=== PATIENT | male | born 1970 | race Hispanic/Latino ===

== ENCOUNTER 2022-03-16 00:49 | Inpatient (IN) | payer SELFPAY ==
[2022-03-16] MEDS ORDERED: SODIUM CHLORIDE 0.9% 1000 ML IV SOLN IV ONE (03:20)
[2022-03-16] MEDS ORDERED: IPRATROPIUM 0.02% NEBU 2.5 ML IH ONE (03:40)
[2022-03-16] MEDS ORDERED: ALBUTEROL 2.5 MG/3 ML NEBU IH ONE (03:40)
[2022-03-16 04:08] LABS: Basophils % (Auto) 0.3 % (0.0-1.8); Hematocrit 42.4 % (35.5-45.6); Lymphocytes # (Auto) 1.4 K/mm3 (1.2-5.4); Lymphocytes % (Auto) 8.4 % (13.4-35.0); Mean Corpuscular HGB Conc 33 % (32-34); Mean Corpuscular Volume 92 fl (84-94); Monocytes % (Auto) 5.9 % (0.0-7.3); Platelet Count 273 K/mm3 (140-440); Red Blood Count 4.63 M/mm3 (3.65-5.03); Red Cell Distribution Width 13.6 % (13.2-15.2)
--- NOTE | 2022-03-16 04:09 | XRay Report ---
CHEST 1 VIEW INDICATION / CLINICAL INFORMATION: Shortness of breath, hypoxia. COMPARISON: None available. FINDINGS: Heart size appears within normal limits. Confluent perihilar airspace opacities are present bilateral ly with additional linear interstitial markings within the mid chest. Bones and soft tissues demonstr ate no acute findings. IMPRESSION: 1. Acute alveolar pulmonary edema is suggested. Signer Name: Santi Coleman II, MD Signed: 03/16/2022 4:04 AM Workstation Name: [id number]
--- NOTE | 2022-03-16 04:09 | Emergency Department Report ---
HPI - General Chief Complaint: Dyspnea/Respdistress Time Seen by Provider: 03/16/22 03:19 - HPI HPI: Room 25 The patient is a 51-year-old male present with chief complaint of shortness of breath. Patient states for the past 9 days he has had increased work of breathing with shortness of breath. Patient also admits to constant substernal chest aching. Patient missed occasional cough that is nonproductive. Patient denies history of fever or pleurisy. Patient states he has not been vaccinated against COVID. Patient denies lower extremity edema. Patient states he never had a stress test or cardiac catheterization ED Past Medical Hx - Past Medical History Previous Medical History?: No - Surgical History Past Surgical History?: No - Family History Family history: no significant - Social History Smoking Status: Current Every Day Smoker (1 pack/day) Substance Use Type: None (Denies illicit drug use) ED Review of Systems ROS: Stated complaint: SOB Other details as noted in HPI Physical Exam - Physical Exam Vital Signs: Vital Signs 03/16/22 03/16/22 03/16/22 01:58 03:13 03:53 Temperature 97.8 F 97.5 F L Pulse Rate 117 H 114 H Pulse Rate [ 113 H Bilateral Throughout] Respiratory 22 20 Rate Respiratory 25 H Rate [Bilateral Throughout] Blood Pressure 76/46 108/79 [Left] O2 Sat by Pulse 91 92 Oximetry ED Course Vital Signs 03/16/22 03/16/22 03/16/22 01:58 03:13 03:53 Temperature 97.8 F 97.5 F L Pulse Rate 117 H 114 H Pulse Rate [ 113 H Bilateral Throughout] Respiratory 22 20 Rate Respiratory 25 H Rate [Bilateral Throughout] Blood Pressure 76/46 108/79 [Left] O2 Sat by Pulse 91 92 Oximetry - Consultations Consultation #1: 03/16/22 05:17 Cardiology paged ED Medical Decision Making - Lab Data Result diagrams: 03/16/22 03:41 03/16/22 03:41 - Radiology Data Radiology results: report reviewed (Chest x-ray), image reviewed (Chest x-ray) interpreted by me: Chest [id number] edema, no pneumothorax [facility] [address] [place] [address] XRay Report Signed Patient: CHARLY YAN MR#: [id number] : 1970 Acct:[id number] Age/Sex: 51 / M ADM Date: 03/16/22 Loc: ED Attending Dr: Ordering Physician: HAVEN PATHAK MD Date of Service: 03/16/22 Procedure(s): XR chest 1V ap Accession Number(s): [id number] cc: HAVEN PATHAK MD Fluoro Time In Minutes: CHEST 1 VIEW INDICATION / CLINICAL INFORMATION: Shortness of breath, hypoxia. COMPARISON: None available. FINDINGS: Heart size appears within normal limits. Confluent perihilar airspace opacities are present bilaterally with additional linear interstitial markings within the mid chest. Bones and soft tissues demonstrate no acute findings. IMPRESSION: 1. Acute alveolar pulmonary edema is suggested. Signer Name: Sachin Coello II, MD Signed: 03/16/2022 4:04 AM Workstation Name: [id number] Transcribed By: SUZANNE Dictated By: SACHIN COELLO II, MD Electronically Authenticated By: SACHIN COELLO II, MD Signed Date/Time: 03/16/22403 DD/ 2 TD/TT: Critical care attestation.: If time is entered above; I have spent that time in minutes in the direct care of this critically ill patient, excluding procedure time. ED Disposition Clinical Impression: NSTEMI (non-ST elevated myocardial infarction), New onset of congestive heart failure, Pulmonary edema, Hypoxia Disposition: ADMITTED INPATIENT Is pt being admited?: Yes Does the pt Need Aspirin: Yes Condition: Serious Instructions: Pulmonary Edema (ED) Time of Disposition: 05:20 (Care transferred to hospitalist (Dr Jacobs))
[2022-03-16] MEDS ORDERED: AZITHROMYCIN/NS 500 MG/250 ML 500 MG/250 ML BAG IV ONE (04:11)
[2022-03-16] MEDS ORDERED: cefTRIAXone/NS 1 GM/50 ML 1 GM/50 ML BAG IV ONE (04:11)
[2022-03-16 04:33] LABS: Alanine Aminotransferase 32 units/L (7-56); BUN/Creatinine Ratio 25; Blood Urea Nitrogen 25 mg/dL (9-20); Calcium 8.7 mg/dL (8.4-10.2); Hemolysis Index 4
[2022-03-16] MEDS ORDERED: ASPIRIN 325 MG TAB PO ONE (05:14)
[2022-03-16] MEDS ORDERED: HEPARIN 10,000 UNITS/10 ML VIAL IV ONE (05:14)
[2022-03-16] MEDS ORDERED: HEPARIN 10,000 UNITS/10 ML VIAL IV PRN (05:14)
[2022-03-16] MEDS ORDERED: FUROSEMIDE 40 MG/4 ML INJ IV ONE (05:16)
[2022-03-16] MEDS ORDERED: NITROGLYCERIN 2% OINT 1 GM TP ONE (05:16)
[2022-03-16 05:59] LABS: INR 1.06 (0.87-1.13); Partial Thromboplastin Time 31.2 Sec. (24.2-36.6)
[2022-03-16] MEDS ORDERED: ONDANSETRON 4 MG/2 ML INJ IV PRN (06:14)
[2022-03-16] MEDS ORDERED: MAGNESIUM HYDROXIDE (MOM) ORAL LIQD UDC PO PRN (06:14)
[2022-03-16] MEDS ORDERED: MORPHINE 2 MG/1 ML INJ IV PRN (06:14)
[2022-03-16] MEDS ORDERED: ACETAMINOPHEN 325 MG TAB PO PRN ×2 (06:14)
[2022-03-16] MEDS ORDERED: traMADol 50 MG TAB PO PRN (06:14)
[2022-03-16] MEDS ORDERED: MORPHINE 4 MG/1 ML INJ IV PRN ×2 (06:14)
[2022-03-16] MEDS: HEPARIN/ 0.45% NACL DRIP 25,000 UNIT/500 ML BAG IV SCH (06:19)
--- NOTE | 2022-03-16 06:24 | History and Physical Report ---
History of Present Illness Date of examination: 03/16/22 Date of admission: 03/16/2022 Chief complaint: Chest pain Shortness of breath History of present illness: 51-year-old male with no significant past medical history presenting to the emergency room today complaining of likely history of chest pain. Patient also has been having increased shortness of breath over the past 1-1/2 weeks. He denies any fever or chills. Chest pain is constant and was substernal. He has had occasional cough which is nonproductive. He has also had some nausea and vomiting. He denies any headache but has had some dizziness. Denies any diaphoresis. Patient denies any sick contacts and no recent travel. Denies any contact with anyone with COVID-19. He has not been vaccinated against COVID-19. Upon arrival in the emergency room patient was quite tachypneic and tachycardic. O2 saturation was about 91%. He was placed on BiPAP with significant improvement. Work-up in the emergency room today chest x-ray shows pulmonary edema. Labs shows elevated BNP of 8846, troponin of 1.46.Leukocytosis of 16.3. Patient was subsequently placed on heparin drip. Past History Past Medical History: No medical history Past Surgical History: No surgical history Social history: smoking (Smokes a pack of cigarette daily) Family history: no significant family history Medications and Allergies Allergies Allergy/AdvReac Type Severity Reaction Status Date / Time No Known Allergies Allergy Verified 03/16/22 02:00 Active Meds: Active Medications Heparin Sodium (Porcine) (Heparin 10,000 Units/10 Ml Vial) 2,900 unit 40 unit/kg (2900 unit) IV Q6H PRN PRN Reason: Anti-Xa Assay<0.1 units/ml Heparin Sodium/Sodium Chloride (Heparin/ 0.45% Nacl-25,000 Unit/500 Ml) 25,000 unit in 500 mls @ 20 mls/hr IV TITRATE EUGENIO; Protocol Review of Systems Constitutional: no fever, no chills Ears, nose, mouth and throat: no nasal congestion, no sore throat Cardiovascular: chest pain, no palpitations Respiratory: shortness of breath, no cough Gastrointestinal: nausea, vomiting, no abdominal pain, no diarrhea, no constipation Genitourinary Male: no dysuria, no hematuria, no flank pain, no nocturia Musculoskeletal: no neck pain, no low back pain Integumentary: no rash, no pruritis Neurological: no headaches, no confusion Psychiatric: no anxiety, no depression Endocrine: no polyphagia, no polydipsia, no polyuria, no nocturia Exam - Constitutional Vitals: Temp Pulse Resp BP Pulse Ox 97.5 F L 113 H 52 H 108/79 97 03/16/22 03:13 03/16/22 04:44 03/16/22 04:44 03/16/22 03:13 03/16/22 04:44 General appearance: Present: mild distress (On BiPAP), well-nourished - EENT Eyes: Present: PERRL, EOM intact. Absent: scleral icterus ENT: hearing intact, clear oral mucosa, dentition normal - Neck Neck: Present: supple, normal ROM - Respiratory Respiratory effort: normal Respiratory: bilateral: rales (Few basilar rales) - Cardiovascular Rhythm: regular Heart Sounds: Present: S1 & S2. Absent: gallop, systolic murmur, diastolic murmur, rub, click - Extremities Extremities: no ischemia, pulses intact, pulses symmetrical, No edema, normal temperature, normal color, Full ROM Peripheral Pulses: within normal limits - Abdominal General gastrointestinal: Present: soft, non-tender, non-distended, normal bowel sounds. Absent: mass - Integumentary Integumentary: Present: clear, warm, dry, normal turgor. Absent: rash - Musculoskeletal Musculoskeletal: strength equal bilaterally - Psychiatric Psychiatric: appropriate mood/affect, intact judgment & insight, memory intact, cooperative - Neurologic Neurologic: CNII-XII intact, no focal deficits, moves all extremities HEART Score - HEART Score Troponin: Troponin T 1.460 ng/mL (0.00-0.029) H* 03/16/22 03:41 Results - Labs CBC & Chem 7: 03/16/22 03:41 03/16/22 03:41 Labs: Abnormal lab results 03/16/22 03/16/22 03/16/22 Range/Units 03:41 03:41 03:41 WBC 16.3 H (4.5-11.0) K/mm3 Lymph % (Auto) 8.4 L (13.4-35.0) % [place] # (Auto) 1.0 H (0.0-0.8) K/mm3 Seg Neutrophils % 85.4 H (40.0-70.0) % Seg Neutrophils # 13.9 H (1.8-7.7) K/mm3 PT (12.2-14.9) Sec. Carbon Dioxide 19 L (22-30) mmol/L BUN 25 H (9-20) mg/dL Glucose 137 H (75-100) mg/dL Lactic Acid (0.7-2.0) mmol/L CK-MB (CK-2) (0.0-4.0) ng/mL CK-MB (CK-2) Rel Index (0-4) Troponin T 1.460 H* (0.00-0.029) ng/mL NT-Pro-B Natriuret Pep (0-900) pg/mL LDL Cholesterol Direct 134 H (50-130) mg/dL HDL Cholesterol 25 L (40-59) mg/dL 03/16/22 03/16/22 03/16/22 Range/Units 03:41 05:26 Unknown WBC (4.5-11.0) K/mm3 Lymph % (Auto) (13.4-35.0) % [place] # (Auto) (0.0-0.8) K/mm3 Seg Neutrophils % (40.0-70.0) % Seg Neutrophils # (1.8-7.7) K/mm3 PT 15.0 H (12.2-14.9) Sec. Carbon Dioxide (22-30) mmol/L BUN (9-20) mg/dL Glucose (75-100) mg/dL Lactic Acid 2.30 H* (0.7-2.0) mmol/L CK-MB (CK-2) 9.0 H (0.0-4.0) ng/mL CK-MB (CK-2) Rel Index 5.6 H (0-4) Troponin T (0.00-0.029) ng/mL NT-Pro-B Natriuret Pep 8846 H (0-900) pg/mL LDL Cholesterol Direct (50-130) mg/dL HDL Cholesterol (40-59) mg/dL Assessment and Plan - Patient Problems (1) NSTEMI (non-ST elevated myocardial infarction) Current Visit: Yes Status: Acute Plan to address problem: Patient admitted and placed in the intensive care unit on BiPAP. We will check serial cardiac enzymes. Patient placed on daily aspirin, sublingual nitroglycerin and IV morphine as needed for chest pain. [employer] Machine Operator on-call has been consulted by the ER physician. (2) Tobacco abuse Current Visit: Yes Status: Acute Plan to address problem: Counseled on quitting tobacco use. (3) Pulmonary edema Current Visit: Yes Status: Acute Plan to address problem: Possibly a new onset CHF. Patient placed on diuretics. We will monitor input and output and also monitor daily weight. Scheduled for echocardiogram. (4) Hypoxia Current Visit: Yes Status: Acute Plan to address problem: Possibly secondary to the pulmonary edema. Suspect underlying pneumonia versus bronchitis. Will place on empiric IV antibiotics. (5) DVT prophylaxis Current Visit: Yes Status: Acute Plan to address problem: Patient on heparin drip. (6) Full code status Current Visit: Yes Status: Acute Plan to address problem: Patient is full code.
[2022-03-16 06:44] LABS: Basophils % (Auto) 0.2 % (0.0-1.8); Hematocrit 42.2 % (35.5-45.6); Hemoglobin 13.7 gm/dl (11.8-15.2); Lymphocytes % (Auto) 6.1 % (13.4-35.0); Mean Corpuscular HGB Conc 33 % (32-34); Mean Corpuscular Volume 92 fl (84-94); Monocytes # (Auto) 0.9 K/mm3 (0.0-0.8); Monocytes % (Auto) 5.4 % (0.0-7.3); Red Blood Count 4.59 M/mm3 (3.65-5.03); Red Cell Distribution Width 13.6 % (13.2-15.2)
[2022-03-16 07:05] LABS: Platelet Count 234 K/mm3 (140-440)
[2022-03-16 07:08] LABS: Blood Urea Nitrogen TNR mg/dL (9-20)
[2022-03-16 07:09] LABS: BUN/Creatinine Ratio TNR; Calcium TNR mg/dL (8.4-10.2); Hemolysis Index TNR
[2022-03-16] MEDS ORDERED: cefTRIAXone/NS 1 GM/50 ML 1 GM/50 ML BAG IV SCH (08:00)
--- NOTE | 2022-03-16 10:10 | Event Note ---
Full consultation dictated. Thank you.
[2022-03-16 10:27] LABS: BUN/Creatinine Ratio 27; Blood Urea Nitrogen 24 mg/dL (9-20); Calcium 8.2 mg/dL (8.4-10.2); Hemolysis Index 52
[2022-03-16 14:08] LABS: Bilirubin,Urine NEG (Negative); Blood,Urine LG (Negative); Color,Urine Yellow (Yellow); Hyaline Casts,Urine 6 /LPF; Mucus,Urine 1+ /HPF; Protein,Urine <15 mg/dL mg/dL (Negative); Urobilinogen,Urine < 2.0 mg/dL (<2.0)
[2022-03-16] MEDS: FAMOTIDINE 20 MG/2 ML INJ IV SCH (14:55)
[2022-03-16] MEDS: FUROSEMIDE 40 MG/4 ML INJ IV SCH (19:04)
--- NOTE | 2022-03-17 | Consultation ---
DATE OF CONSULTATION: 03/16/2022 HISTORY OF PRESENT ILLNESS: The patient is a pleasant 51-year-old gentleman with whom I am consulted on for evaluation of shortness of breath. The patient is a 51-year-old gentleman, who has been having shortness of breath for 2 weeks. 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 Denies any chest pain the whole time. States that he was more shortness of breath, significant orthopnea, some nausea and vomiting, some nonproductive cough. No recent sick contacts. He is seen in room 25 in the Emergency Room this morning. He states he is feeling a lot better. He is chest pain free, breathing a lot easier and is "relieved to be here." He does not see doctors regularly. Denies any drug or food allergies. MEDICATIONS: No outpatient medications and inpatient medications were reviewed. REVIEW OF SYSTEMS: As per HPI. PHYSICAL EXAMINATION: VITAL SIGNS: Tele reveals heart rate of 95-105, sinus rhythm. His O2 sat is 97% on 2 liters, blood pressure is 110/80. He is afebrile at this time. GENERAL: This is a middle-aged gentleman, in no apparent distress, oriented x 3, conversive. HEENT: Sclerae are anicteric. NECK: Supple, no masses, no JVD. CHEST: Decreased breath sounds, bibasilar rales. CARDIAC: Tachycardic. S1, S2. S3 is present. ABDOMEN: Soft, nontender. EXTREMITIES: 1+ edema. SKIN: Warm, dry and intact. No skin rash. NEUROLOGIC: Neuro is unremarkable. No focal deficits. LABORATORY DATA: EKG reveals sinus tachycardia, left atrial enlargement, nonspecific T-wave abnormalities, anterior ST depression. Chest x-ray shows increased interstitial markings. WBC 16.3, hemoglobin 14, hematocrit 42, platelets 273. Potassium is 4.6, creatinine is 1, BUN is 25. Sugar is 137, bicarbonate is 19. First, lactic acid is 2.3. Troponin is 1.6. ASSESSMENT: In summary, the patient is a 51-year-old gentleman who presents with 2 weeks of shortness of breath currently feeling much better. Likely acute systolic heart failure due to very late presentation, acute ND. Troponin is elevated. The patient is orthopneic likely has an ischemic cardiomyopathy, but has had significant orthopnea. At this point, he is chest pain free and clinically improved, blood pressures are also on the lower side and has likely physiologic sinus tachycardia. Continue IV heparin, aspirin, initiate statin therapy. Avoid any antihypertensives including beta wilver or ARB/CLARITA at this time due to very soft blood pressures. Agree with IV diuresis. We will need to watch his labs closely. Elevated lactate level also portends as a poor sign. Smoking cessation discussed. Long discussion with the patient regarding importance of lifestyle changes and so forth. We will admit to ICU diurese once this orthopnea improved. We checked an echocardiogram, consider left heart catheterization. He is chest pain free at this time. Thank you for this consultation. We will be happy following with you. TID: [id number] RECEIPT: [id number] DAVONTE/ADRIÁN
[2022-03-17 05:18] LABS: Basophils % (Auto) 0.4 % (0.0-1.8); Eosinophils % (Auto) 0.1 % (0.0-4.3); Hematocrit 39.7 % (35.5-45.6); Hemoglobin 13.1 gm/dl (11.8-15.2); Lymphocytes % (Auto) 16.8 % (13.4-35.0); Mean Corpuscular HGB Conc 33 % (32-34); Mean Corpuscular Volume 91 fl (84-94); Monocytes % (Auto) 7.9 % (0.0-7.3); Platelet Count 271 K/mm3 (140-440); Red Blood Count 4.35 M/mm3 (3.65-5.03); Red Cell Distribution Width 13.7 % (13.2-15.2)
[2022-03-17] MEDS: FUROSEMIDE 40 MG/4 ML INJ IV SCH ×2 (05:20→17:05)
[2022-03-17 05:35] LABS: BUN/Creatinine Ratio 29; Blood Urea Nitrogen 35 mg/dL (9-20); Calcium 8.8 mg/dL (8.4-10.2); Hemolysis Index 2
[2022-03-17] MEDS ORDERED: cefTRIAXone/NS 2 GM/100 ML 2 GM/100 ML BAG IV SCH (06:00)
[2022-03-17] MEDS ORDERED: AZITHROMYCIN/NS 500 MG/250 ML 500 MG/250 ML BAG IV SCH (06:00)
[2022-03-17] MEDS ORDERED: REGADENOSON 0.4 MG/5 ML INJ IV ONE (09:00)
[2022-03-17] MEDS ORDERED: SODIUM POLYSTYRENE 15 GM/60 ML ORAL LIQD PO SCH (09:00)
[2022-03-17] MEDS: ASPIRIN EC 325 MG TAB PO SCH (10:13)
[2022-03-17] MEDS: FAMOTIDINE 20 MG/2 ML INJ IV SCH (10:13)
--- NOTE | 2022-03-17 10:26 | Progress Note ---
Assessment and Plan Assessment and plan: This is a 51-year-old male with no significant past medical history initially admitted to [facility] for NSTEMI and new onset CHF. Patient was transferred to ICU due to increased WOB and tachypnea requiring continuous Bipap Hospital Course to Date: 03/17: Patient remains on continuous Bipap, respiratory status improved, RR in the 20s. Remains on IV lasix BID, 2D Echo pending. Cardiology and CCM following. Plan for possible stress test today. Patient remains on heparin gtt per prot ocol. Wean O2 supplementation as tolerated. Assessment and Plan #NSTEMI (non-ST elevated myocardial infarction) #New Onset congestive heart failure(CHF) - Presented with CP and SOB - Troponin is elevated X4 - Initial EKG with ST, nonspecific ST elevation - BNP 8846 - On IV Lasix BID - Cardiology on consult, appreciated recommendations - 2D Echo pending - Plan for possible stress test today - Continue ASA, PRN Nitro and IN morphine for chest pain - Continue blood pressure monitor per protocol - Maintain MAP above 65 - Continue Heparin gtt per protocol - Strick I&Os and Daily #Acute Hypoxic Respiratory Failure 12/18 #Pulmonary Edema - Most likely due to new onset CHF. - Transfer to ICU for increased WOB and tachypenea requiring continuous Bipap - Chest x-ray shows pulmonary edema - Remains on Bipap this am, SPO2 at 100%, respiratory status improved - Continue IV Lasix BID, Echo pending - CCM consulted, appreciate recommendations - Continue O2 supplementation and wean as tolerated - Continue SPO2 monitoring for SPO2 goal above 92% - Strick I&Os and Daily #Hyperkalemia - Renal function normal at this time, good urine output - Hyperkalemic despite IV lasix - X1 dose of Kayexalate - Continue to monitor renal function - Strict intake and output - Avoid nephrotoxic medications; Renally dose medications - Monitor and replace electrolytes as needed #Tobacco Dependence - Per patient, smoke 1pack of cigarettes for over 30 years - Smoking cessation education provided, patient verbalized understand and agreed with plan - Denied any urges at this time, nicotine patch as needed #GI/DVT Prophylaxis - PPI- Pepcid - Heparin gtt per protcol - SCDs to bilateral lower extremities while in bed The high probability of a clinically significant, sudden or life threatening deterioration of the [multiple] system(s) required my full and direct attention, intervention and personal management. The aggregate critical care time was [60] minutes. This time is in addition to time spent performing reported procedures but includes the following: [x] Data Review and interpretation [x] Patient assessment and monitoring of vital signs [x] Documentation [x] Medication orders and management Disposition Plan: ICU Total Time Spent with Patient (Minutes): 60 History Interval history: Patient seen and examined at the bedside. Fully AAO, on Bipap, denied any pain nor any discomfort at this time. VSS. Patient reported feeling anxious about this am procedure and hospital bills. Patient has been NPO since after midnight for possible stress test today. Patient remains on Heparin gtt per protocol Hospitalist Physical - Constitutional Vitals: Temp Pulse Resp BP Pulse Ox 97 F L 95 H 30 H 108/82 95 03/17/22 08:11 03/17/22 09:50 03/17/22 09:50 03/17/22 09:50 03/17/22 09:58 General appearance: Present: no acute distress, well-nourished - EENT Eyes: Present: PERRL, EOM intact ENT: hearing intact - Neck Neck: Present: normal ROM - Respiratory Respiratory effort: normal Respiratory: bilateral: diminished - Cardiovascular Rhythm: regular Heart Sounds: Present: S1 & S2 - Extremities Extremities: no ischemia, pulses intact, pulses symmetrical Peripheral Pulses: within normal limits - Abdominal General gastrointestinal: soft, non-distended, normal bowel sounds - Integumentary Integumentary: Present: clear, warm, dry - Psychiatric Psychiatric: cooperative, other (Anxious) - Neurologic Neurologic: CNII-XII intact, moves all extremities - Allied Health Allied health notes reviewed: nursing HEART Score - HEART Score Troponin: Troponin T 1.410 ng/mL (0.00-0.029) H* 03/16/22 17:41 Troponin T 1.420 ng/mL (0.00-0.029) H* 03/16/22 17:41 Results - Labs CBC & Chem 7: 03/17/22 04:22 03/17/22 04:22 Labs: Laboratory Last Values WBC 12.2 K/mm3 (4.5-11.0) H 03/17/22 04:22 RBC 4.35 M/mm3 (3.65-5.03) 03/17/22 04:22 Hgb 13.1 gm/dl (11.8-15.2) 03/17/22 04:22 Hct 39.7 % (35.5-45.6) 03/17/22 04:22 MCV 91 fl (84-94) 03/17/22 04:22 MCH 30 pg (28-32) 03/17/22 04:22 MCHC 33 % (32-34) 03/17/22 04:22 RDW 13.7 % (13.2-15.2) 03/17/22 04:22 Plt Count 271 K/mm3 (140-440) 03/17/22 04:22 Lymph % (Auto) 16.8 % (13.4-35.0) 03/17/22 04:22 [place] % (Auto) 7.9 % (0.0-7.3) H 03/17/22 04:22 Eos % (Auto) 0.1 % (0.0-4.3) 03/17/22 04:22 Baso % (Auto) 0.4 % (0.0-1.8) 03/17/22 04:22 Lymph # (Auto) 2.0 K/mm3 (1.2-5.4) 03/17/22 04:22 [place] # (Auto) 1.0 K/mm3 (0.0-0.8) H 03/17/22 04:22 Eos # (Auto) 0.0 K/mm3 (0.0-0.4) 03/17/22 04:22 Baso # (Auto) 0.0 K/mm3 (0.0-0.1) 03/17/22 04:22 Seg Neutrophils % 74.8 % (40.0-70.0) H 03/17/22 04:22 Seg Neutrophils # 9.1 K/mm3 (1.8-7.7) H 03/17/22 04:22 PT 15.0 Sec. (12.2-14.9) H 03/16/22 05: INR 1.06 (0.87-1.13) 03/16/22 05:26 APTT 31.2 Sec. (24.2-36.6) 03/16/22 05:26 Heparin Anti-Xa Level 0.15 U.I./ml (0.3-0.7) L 03/17/22 08:37 Sodium 142 mmol/L (137-145) 03/17/22 04:22 Potassium 5.4 mmol/L (3.6-5.0) H 03/17/22 04:22 Chloride 104.8 mmol/L (98-107) 03/17/22 04:22 Carbon Dioxide 23 mmol/L (22-30) 03/17/22 04:22 Anion Gap 20 mmol/L 03/17/22 04:22 BUN 35 mg/dL (9-20) H 03/17/22 04:22 Creatinine 1.2 mg/dL (0.8-1.3) 03/17/22 04:22 Estimated GFR > 60 ml/min 03/17/22 04:22 BUN/Creatinine Ratio 29 % 03/17/22 04:22 Glucose 106 mg/dL (75-100) H 03/17/22 04:22 POC Glucose 109 mg/dL (70-105) H 03/16/22 23:58 Lactic Acid 1.60 mmol/L (0.7-2.0) 03/17/22 04:22 Calcium 8.8 mg/dL (8.4-10.2) 03/17/22 04:22 Total Bilirubin 0.40 mg/dL (0.1-1.2) 03/16/22 03:41 AST 28 units/L (5-40) 03/16/22 03:41 ALT 32 units/L (7-56) 03/16/22 03:41 Alkaline Phosphatase 60 units/L (35-129) 03/16/22 03:41 Total Creatine Kinase 158 units/L (55-170) 03/16/22 Unknown CK-MB (CK-2) 9.0 ng/mL (0.0-4.0) H 03/16/22 Unknown CK-MB (CK-2) Rel Index 5.6 (0-4) H 03/16/22 Unknown Troponin T 1.410 ng/mL (0.00-0.029) H* 03/16/22 17:41 Troponin T 1.420 ng/mL (0.00-0.029) H* 03/16/22 17:41 NT-Pro-B Natriuret Pep 8846 pg/mL (0-900) H 03/16/22 Unknown Total Protein 6.4 g/dL (6.3-8.2) 03/16/22 03:41 Albumin 4.0 g/dL (3.9-5) 03/16/22 03:41 Albumin/Globulin Ratio 1.7 % 03/16/22 03:41 Triglycerides 139 mg/dL (2-149) 03/16/22 03:41 Cholesterol 175 mg/dL (50-199) 03/16/22 03:41 LDL Cholesterol Direct 134 mg/dL (50-130) H 03/16/22 03:41 HDL Cholesterol 25 mg/dL (40-59) L 03/16/22 03:41 Cholesterol/HDL Ratio 7.00 % 03/16/22 03:41 Urine Color Yellow (Yellow) 03/16/22 13:56 Urine Turbidity Clear (Clear) 03/16/22 13:56 Urine pH 5.0 (5.0-7.0) 03/16/22 13:56 Ur Specific [place] 1.018 (1.003-1.030) 03/16/22 13:56 Urine Protein <15 mg/dl mg/dL (Negative) 03/16/22 13:56 Urine Glucose (UA) Neg mg/dL (Negative) 03/16/22 13:56 Urine Ketones Neg mg/dL (Negative) 03/16/22 13:56 Urine Blood Lg (Negative) 03/16/22 13:56 Urine Nitrite Neg (Negative) 03/16/22 13:56 Urine Bilirubin Neg (Negative) 03/16/22 13:56 Urine Urobilinogen < 2.0 mg/dL (<2.0) 03/16/22 13:56 Ur Leukocyte Esterase Neg (Negative) 03/16/22 13:56 Urine WBC (Auto) 1.0 /HPF (0.0-6.0) 03/16/22 13:56 Urine RBC (Auto) 2.0 /HPF (0.0-6.0) 03/16/22 13:56 U Epithel Cells (Auto) < 1.0 /HPF (0-13.0) 03/16/22 13:56 Hyaline Casts 6 /LPF 03/16/22 13:56 Urine Mucus 1+ /HPF 03/16/22 13:56 Coronavirus (PCR) Negative (Negative) 03/16/22 12:26 Microbiology: Microbiology 03/16/22 03:41 Peripheral/Venous Blood Culture - Preliminary NO GROWTH AFTER 24 HOURS 03/16/22 03:41 Peripheral/Venous Blood Culture - Preliminary NO GROWTH AFTER 24 HOURS Martini/IV: Voiding Method Urinal Active Medications - Current Medications Current Medications: Generic Name Dose Route Start Last Admin Trade Name Freq PRN Reason Stop Dose Admin Acetaminophen 650 mg 03/16/22 06:14 Acetaminophen 325 Mg Tab PO Q6H PRN Pain MILD(1-3)/Fever >100.5/CLEARY Aspirin 325 mg 03/17/22 10:00 03/17/22 10:13 Aspirin Ec 325 Mg Tab PO 325 mg QDAY EUGENIO Administration Atorvastatin Calcium 20 mg 03/16/22 22:00 03/16/22 21:26 Atorvastatin 20 Mg Tab PO Not Given QHS EUGENIO Famotidine 20 mg 03/16/22 10:00 03/17/22 10:13 Famotidine 20 Mg/2 Ml Inj IV 20 mg QDAY EUGENIO Administration Furosemide 40 mg 03/16/22 18:00 03/17/22 05:20 Furosemide 40 Mg/4 Ml Inj IV 40 mg BID@0600,1800 EUGENIO Administration Heparin Sodium (Porcine) 2,900 unit 03/16/22 05:14 Heparin 10,000 Units/10 Ml Vial 40 unit/kg (2900 unit) IV Q6H PRN Anti-Xa Assay<0.1 units/ml Heparin Sodium/Sodium Chloride 25,000 unit in 500 mls @ 20 mls/hr 03/16/22 06:00 03/17/22 01:53 Heparin/ 0.45% Nacl-25,000 Unit/500 Ml IV 1,350 units/hr TITRATE EUGENIO 27 mls/hr Titration Protocol 1,000 UNITS/HR Ceftriaxone Sodium 2 gm in 100 mls @ 200 mls/hr 03/17/22 06:00 03/17/22 05:19 Rocephin/Ns 2 Gm/100 Ml IV 200 mls/hr Q24H EUGENIO Administration Protocol Azithromycin 500 mg in 250 mls @ 250 mls/hr 03/17/22 06:00 03/17/22 05:19 Zithromax/Ns IV 250 mls/hr Q24H EUGENIO Administration Protocol Magnesium Hydroxide 30 ml 03/16/22 06:14 Magnesium Hydroxide (Mom) Oral Liqd Udc PO Q4H PRN Constipation Morphine Sulfate 2 mg 03/16/22 06:14 Morphine 2 Mg/1 Ml Inj IV Q4H PRN Pain, Moderate (4-6) Morphine Sulfate 4 mg 03/16/22 06:14 Morphine 4 Mg/1 Ml Inj IV Q4H PRN Pain , Severe (7-10) Morphine Sulfate 2 mg 03/16/22 06:14 Morphine 4 Mg/1 Ml Inj IV Q5MIN PRN Chest Pain unrelieved by NTG Ondansetron HCl 4 mg 03/16/22 06:14 Ondansetron 4 Mg/2 Ml Inj IV Q8H PRN Nausea And Vomiting Sodium Chloride 10 ml 03/16/22 10:00 03/17/22 10:14 Sodium Chloride 0.9% 10 Ml Flush Syringe IV 10 ml BID EUGENIO Administration Sodium Chloride 10 ml 03/16/22 06:14 Sodium Chloride 0.9% 10 Ml Flush Syringe IV PRN PRN LINE FLUSH Sodium Polystyrene Sulfonate 15 gm 03/17/22 09:00 03/17/22 10:24 Sodium Polystyrene 15 Gm/60 Ml Oral Liqd PO 03/17/22 13:00 Not Given ONCE@0900 [facility] Tramadol HCl 50 mg 03/16/22 06:14 Tramadol 50 Mg Tab PO Q6H PRN Pain, Moderate (4-6)
--- NOTE | 2022-03-17 11:19 | Consultation ---
History of Present Illness Consult date: 03/16/22 Requesting physician: JAY MEIER Reason for consult: other (AHRF; NSTEMI; Chest pain) History of present illness: LATE ENTRY NOTE FOR DOS 03/16/2022 PULMONARY/CCM CONSULT NOTE (Full dictation # [id number]) Please see dictated notes for full details Past History Past Medical History: No medical history Past Surgical History: No surgical history Social history: smoking (Smokes a pack of cigarette daily) Family history: no significant family history Medications and Allergies Allergies Allergy/AdvReac Type Severity Reaction Status Date / Time No Known Allergies Allergy Verified 03/16/22 02:00 Active Meds: Active Medications Acetaminophen (Acetaminophen 325 Mg Tab) 650 mg PO Q6H PRN PRN Reason: Pain MILD(1-3)/Fever >100.5/CLEARY Aspirin (Aspirin Ec 325 Mg Tab) 325 mg PO QDAY [facility] Last Admin: 03/17/22 10:13 Dose: 325 mg Atorvastatin Calcium (Atorvastatin 20 Mg Tab) 20 mg PO QHS [facility] Last Admin: 03/16/22 21:26 Dose: Not Given Famotidine (Famotidine 20 Mg/2 Ml Inj) 20 mg IV QDAY [facility] Last Admin: 03/17/22 10:13 Dose: 20 mg Furosemide (Furosemide 40 Mg/4 Ml Inj) 40 mg IV BID@0600,1800 [facility] Last Admin: 03/17/22 05:20 Dose: 40 mg Heparin Sodium (Porcine) (Heparin 10,000 Units/10 Ml Vial) 2,900 unit 40 unit/kg (2900 unit) IV Q6H PRN PRN Reason: Anti-Xa Assay<0.1 units/ml Heparin Sodium/Sodium Chloride (Heparin/ 0.45% Nacl-25,000 Unit/500 Ml) 25,000 unit in 500 mls @ 20 mls/hr IV TITRATE [facility]; Protocol Last Titration: 03/17/22 10:46 Dose: Infused Magnesium Hydroxide (Magnesium Hydroxide (Mom) Oral Liqd Udc) 30 ml PO Q4H PRN PRN Reason: Constipation Morphine Sulfate (Morphine 2 Mg/1 Ml Inj) 2 mg IV Q4H PRN PRN Reason: Pain, Moderate (4-6) Morphine Sulfate (Morphine 4 Mg/1 Ml Inj) 4 mg IV Q4H PRN PRN Reason: Pain , Severe (7-10) Morphine Sulfate (Morphine 4 Mg/1 Ml Inj) 2 mg IV Q5MIN PRN PRN Reason: Chest Pain unrelieved by NTG Ondansetron HCl (Ondansetron 4 Mg/2 Ml Inj) 4 mg IV Q8H PRN PRN Reason: Nausea And Vomiting Sodium Chloride (Sodium Chloride 0.9% 10 Ml Flush Syringe) 10 ml IV BID [facility] Last Admin: 03/17/22 10:14 Dose: 10 ml Sodium Chloride (Sodium Chloride 0.9% 10 Ml Flush Syringe) 10 ml IV PRN PRN PRN Reason: LINE FLUSH Sodium Polystyrene Sulfonate (Sodium Polystyrene 15 Gm/60 Ml Oral Liqd) 15 gm PO ONCE@0900 [facility] Stop: 03/17/22 13:00 Last Admin: 03/17/22 10:24 Dose: Not Given Tramadol HCl (Tramadol 50 Mg Tab) 50 mg PO Q6H PRN PRN Reason: Pain, Moderate (4-6) Physical Examination Vital signs: Vital Signs Temp Pulse Resp BP Pulse Ox 97.8 F 117 H 22 76/46 91 03/16/22 01:58 03/16/22 01:58 03/16/22 01:58 03/16/22 01:58 03/16/22 01:58 Results - Laboratory Findings CBC and BMP: 03/17/22 04:22 03/17/22 04:22 PT/INR, D-dimer PT 15.0 Sec. (12.2-14.9) H 03/16/22 05:26 INR 1.06 (0.87-1.13) 03/16/22 05:26 Abnormal lab findings: Abnormal Labs 03/16/22 03/16/22 03/16/22 03:41 03:41 03:41 WBC 16.3 H Lymph % (Auto) 8.4 L [place] % (Auto) Lymph # (Auto) [place] # (Auto) 1.0 H Seg Neutrophils % 85.4 H Seg Neutrophils # 13.9 H PT Heparin Anti-Xa Level Potassium Carbon Dioxide 19 L BUN 25 H Glucose 137 H POC Glucose Lactic Acid Calcium CK-MB (CK-2) CK-MB (CK-2) Rel Index Troponin T 1.460 H* NT-Pro-B Natriuret Pep LDL Cholesterol Direct 134 H HDL Cholesterol 25 L 03/16/22 03/16/22 03/16/22 03:41 05:26 06:14 WBC 16.6 H Lymph % (Auto) 6.1 L [place] % (Auto) Lymph # (Auto) 1.0 L [place] # (Auto) 0.9 H Seg Neutrophils % 88.3 H Seg Neutrophils # 14.7 H PT 15.0 H Heparin Anti-Xa Level Potassium Carbon Dioxide BUN Glucose POC Glucose Lactic Acid 2.30 H* Calcium CK-MB (CK-2) CK-MB (CK-2) Rel Index Troponin T NT-Pro-B Natriuret Pep LDL Cholesterol Direct HDL Cholesterol 03/16/22 03/16/22 03/16/22 06:19 08:19 08:19 WBC Lymph % (Auto) [place] % (Auto) Lymph # (Auto) [place] # (Auto) Seg Neutrophils % Seg Neutrophils # PT Heparin Anti-Xa Level Potassium Carbon Dioxide 18 L BUN 24 H Glucose 138 H POC Glucose Lactic Acid 2.60 H* 2.30 H* Calcium 8.2 L CK-MB (CK-2) CK-MB (CK-2) Rel Index Troponin T NT-Pro-B Natriuret Pep LDL Cholesterol Direct HDL Cholesterol 03/16/22 03/16/22 03/16/22 17:41 17:41 17:41 WBC Lymph % (Auto) [place] % (Auto) Lymph # (Auto) [place] # (Auto) Seg Neutrophils % Seg Neutrophils # PT Heparin Anti-Xa Level < 0.10 L Potassium Carbon Dioxide BUN Glucose POC Glucose Lactic Acid Calcium CK-MB (CK-2) CK-MB (CK-2) Rel Index Troponin T 1.420 H* 1.410 H* NT-Pro-B Natriuret Pep LDL Cholesterol Direct HDL Cholesterol 03/16/22 03/16/22 03/17/22 23:58 Unknown 00:39 WBC Lymph % (Auto) [place] % (Auto) Lymph # (Auto) [place] # (Auto) Seg Neutrophils % Seg Neutrophils # PT Heparin Anti-Xa Level < 0.10 L Potassium Carbon Dioxide BUN Glucose POC Glucose 109 H Lactic Acid Calcium CK-MB (CK-2) 9.0 H CK-MB (CK-2) Rel Index 5.6 H Troponin T NT-Pro-B Natriuret Pep 8846 H LDL Cholesterol Direct HDL Cholesterol 03/17/22 03/17/22 03/17/22 04:22 04:22 08:37 WBC 12.2 H Lymph % (Auto) [place] % (Auto) 7.9 H Lymph # (Auto) [place] # (Auto) 1.0 H Seg Neutrophils % 74.8 H Seg Neutrophils # 9.1 H PT Heparin Anti-Xa Level 0.15 L Potassium 5.4 H Carbon Dioxide BUN 35 H Glucose 106 H POC Glucose Lactic Acid Calcium CK-MB (CK-2) CK-MB (CK-2) Rel Index Troponin T NT-Pro-B Natriuret Pep LDL Cholesterol Direct HDL Cholesterol
[2022-03-17] MEDS: HEPARIN/ 0.45% NACL DRIP 25,000 UNIT/500 ML BAG IV SCH (12:35)
--- NOTE | 2022-03-17 13:39 | Electrocardiograph Report ---
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
--- NOTE | 2022-03-17 16:14 | Progress Note ---
Assessment and Plan Acute hypoxemic respiratory failure Acute bilateral pulmonary edema Acute exacerbation of congestive heart failure Leukocytosis Tobacco use disorder Lactic acidosis - cardiology evaluation ongoing - CXR in am - change BIPAP to prn - continue to wean supplemental oxygen to keep O2 sats > 90% - continue Bronchodilators (JENNYFER & LABA) with pulm hygiene per RT - continue systemic steroids with slow taper - continue inhaled corticosteroids - continue to avoid nephrotoxins, renally dose all medications - continue mobility protocols to prevent pressure ulcers - PT/OT as tolerated - Wound care per RN/WCT - continue accuchecks with glycemic control per SSI for target blood glucose < 180 mg/dL - Smoking cessation strongly counseled at the bedside - home oxygen evaluation at discharge - GI & VTE prophylaxis - Flu & pneumovax per protocol - Pulmonary out patient follow up for PFTs and optimization of respiratory status - continue other care per attending / other consultants - prn analgesia per pain score ... re-evaluate in am & prn .... transfer to medical floor Subjective Date of service: 03/17/22 Principal diagnosis: AHRF; AE-CHF; Acute pulmonary edema; Leukocytosis; Lactic acidosis Interval history: Patient is seen today for: Acute hypoxemic respiratory failure; AE-CHF; Acute pulmonary edema; Leukocytosis; Lactic acidosis Seen and examined at bedside; 24hour events reviewed; nursing and respiratory care staff consulted; no adverse overnight events reported to me; resting peacefully in bed; doing so much better clinically with diuresis; off BIPAP now and on 3L NC; denies acute chest pains or palpitations Objective Vital Signs - 12hr 03/17/22 03/17/22 03/17/22 05:00 08:00 08:07 Temperature Pulse Rate 93 H 87 Pulse Rate [ 95 H From Monitor] Respiratory 34 H 30 H 30 H Rate Blood Pressure 104/74 101/75 O2 Sat by Pulse 97 98 99 Oximetry 03/17/22 03/17/22 03/17/22 08:11 09:00 09:50 Temperature 97 F L Pulse Rate 95 H Pulse Rate [ 101 H From Monitor] Respiratory 31 H 30 H Rate Blood Pressure 108/82 O2 Sat by Pulse 99 100 Oximetry 03/17/22 03/17/22 03/17/22 09:58 10:00 12:26 Temperature Pulse Rate 96 H 107 H Pulse Rate [ From Monitor] Respiratory Rate Blood Pressure O2 Sat by Pulse 95 Oximetry 05/02/22 05/02/22 05/02/22 12:32 12:44 15:55 Temperature 97.5 F L 98.6 F Pulse Rate Pulse Rate [ 107 H From Monitor] Respiratory 34 H Rate Blood Pressure O2 Sat by Pulse 99 Oximetry Constitutional: no acute distress Eyes: non-icteric ENT: oropharynx moist Neck: supple, no lymphadenopathy, no JVD Effort: mildly labored Ascultation: Bilateral: rales (bases) Percussion: Bilateral: not dull Cardiovascular: regular rate and rhythm Gastrointestinal: normoactive bowel sounds, soft, non-tender, non-distended Integumentary: normal Extremities: no cyanosis, pink and warm, pulses normal, no ischemia or petechiae Neurologic: non-focal exam, pupils equal and round, CN II-XII normal, motor strength normal and Psychiatric: mood appropriate, affect normal CBC and BMP: 03/18/22 04:47 03/18/22 04:47 ABG, PT/INR, D-dimer: PT/INR, D-dimer PT 15.0 Sec. (12.2-14.9) H 03/16/22 05:26 INR 1.06 (0.87-1.13) 03/16/22 05:26 Abnormal lab findings: Abnormal Labs 03/16/22 03/16/22 03/16/22 03:41 03:41 03:41 WBC 16.3 H Lymph % (Auto) 8.4 L [place] % (Auto) Lymph # (Auto) [place] # (Auto) 1.0 H Seg Neutrophils % 85.4 H Seg Neutrophils # 13.9 H PT Heparin Anti-Xa Level Potassium Carbon Dioxide 19 L BUN 25 H Glucose 137 H POC Glucose Lactic Acid Calcium CK-MB (CK-2) CK-MB (CK-2) Rel Index Troponin T 1.460 H* NT-Pro-B Natriuret Pep LDL Cholesterol Direct 134 H HDL Cholesterol 25 L 03/16/22 03/16/22 03/16/22 03:41 05:26 06:14 WBC 16.6 H Lymph % (Auto) 6.1 L [place] % (Auto) Lymph # (Auto) 1.0 L [place] # (Auto) 0.9 H Seg Neutrophils % 88.3 H Seg Neutrophils # 14.7 H PT 15.0 H Heparin Anti-Xa Level Potassium Carbon Dioxide BUN Glucose POC Glucose Lactic Acid 2.30 H* Calcium CK-MB (CK-2) CK-MB (CK-2) Rel Index Troponin T NT-Pro-B Natriuret Pep LDL Cholesterol Direct HDL Cholesterol 03/16/22 03/16/22 03/16/22 06:19 08:19 08:19 WBC Lymph % (Auto) [place] % (Auto) Lymph # (Auto) [place] # (Auto) Seg Neutrophils % Seg Neutrophils # PT Heparin Anti-Xa Level Potassium Carbon Dioxide 18 L BUN 24 H Glucose 138 H POC Glucose Lactic Acid 2.60 H* 2.30 H* Calcium 8.2 L CK-MB (CK-2) CK-MB (CK-2) Rel Index Troponin T NT-Pro-B Natriuret Pep LDL Cholesterol Direct HDL Cholesterol 03/16/22 03/16/22 03/16/22 17:41 17:41 17:41 WBC Lymph % (Auto) [place] % (Auto) Lymph # (Auto) [place] # (Auto) Seg Neutrophils % Seg Neutrophils # PT Heparin Anti-Xa Level < 0.10 L Potassium Carbon Dioxide BUN Glucose POC Glucose Lactic Acid Calcium CK-MB (CK-2) CK-MB (CK-2) Rel Index Troponin T 1.420 H* 1.410 H* NT-Pro-B Natriuret Pep LDL Cholesterol Direct HDL Cholesterol 03/16/22 03/16/22 03/17/22 23:58 Unknown 00:39 WBC Lymph % (Auto) [place] % (Auto) Lymph # (Auto) [place] # (Auto) Seg Neutrophils % Seg Neutrophils # PT Heparin Anti-Xa Level < 0.10 L Potassium Carbon Dioxide BUN Glucose POC Glucose 109 H Lactic Acid Calcium CK-MB (CK-2) 9.0 H CK-MB (CK-2) Rel Index 5.6 H Troponin T NT-Pro-B Natriuret Pep 8846 H LDL Cholesterol Direct HDL Cholesterol 03/17/22 03/17/22 03/17/22 04:22 04:22 08:37 WBC 12.2 H Lymph % (Auto) [place] % (Auto) 7.9 H Lymph # (Auto) [place] # (Auto) 1.0 H Seg Neutrophils % 74.8 H Seg Neutrophils # 9.1 H PT Heparin Anti-Xa Level 0.15 L Potassium 5.4 H Carbon Dioxide BUN 35 H Glucose 106 H POC Glucose Lactic Acid Calcium CK-MB (CK-2) CK-MB (CK-2) Rel Index Troponin T NT-Pro-B Natriuret Pep LDL Cholesterol Direct HDL Cholesterol 03/17/22 15:12 WBC Lymph % (Auto) [place] % (Auto) Lymph # (Auto) [place] # (Auto) Seg Neutrophils % Seg Neutrophils # PT Heparin Anti-Xa Level Potassium Carbon Dioxide BUN Glucose POC Glucose 134 H Lactic Acid Calcium CK-MB (CK-2) CK-MB (CK-2) Rel Index Troponin T NT-Pro-B Natriuret Pep LDL Cholesterol Direct HDL Cholesterol Chest x-ray: pending Allied health notes reviewed: nursing
--- NOTE | 2022-03-17 16:34 | Progress Note ---
Assessment and Plan Patient 50-year-old male who presents to the ED for complaint of shortness of breath for 2 weeks NSTEMI HFrEF Suspect ischemic cardiomyopathy Echo 03/16/2022-EF 10 to 15%. LV is moderately dilated. Severe global hypokinesis with LV. Right ventricle is borderline dilated. Left atrium mildly dilated. Moderate pulmonary hypertension Plan: Patient remains chest pain-free Patient currently on aspirin, Lipitor, Lasix, heparin drip Patient still having orthopnea we will continue IV diuretics repeat BMP in the a.m. Strict I&O's Plan for cardiac cath on Thursday Will hold CLARITA or ARB's and beta-wilver due to soft blood pressures Continue to closely monitor Plan of care discussed with patient who verbalized understanding and acknowledgment Patient seen in conjunction with Dr. Linder who agrees with this plan of care - Patient Problems (1) Hypoxia Current Visit: Yes Status: Acute (2) NSTEMI (non-ST elevated myocardial infarction) Current Visit: Yes Status: Acute (3) New onset of congestive heart failure Current Visit: Yes Status: Acute (4) Pulmonary edema Current Visit: Yes Status: Acute (5) Tobacco abuse Current Visit: Yes Status: Acute Subjective Date of service: 03/17/22 Principal diagnosis: NSTEMI Interval history: Patient resting in bed in no acute distress. Patient reports feeling significantly better Sinus 90s to low 100s on monitor Objective Vital Signs Temp Pulse Pulse Resp BP Pulse Ox 03/17/22 16:21 132 H 03/17/22 16:17 130 H 36 H 99 03/17/22 15:55 98.6 F 03/17/22 12:44 97.5 F L 03/17/22 12:32 107 H 34 H 99 03/17/22 12:26 107 H 03/17/22 10:00 96 H 03/17/22 09:58 95 03/17/22 09:50 95 H 30 H 108/82 100 03/17/22 09:00 101 H 31 H 99 03/17/22 08:11 97 F L 03/17/22 08:07 87 30 H 101/75 99 03/17/22 08:00 93 H 30 H 104/74 98 03/17/22 05:00 95 H 34 H 97 03/17/22 03:39 98.4 F 93 H 30 H 104/74 98 03/17/22 01:00 95 H 34 H 97 03/17/22 00:26 96 H 32 H 103/78 97 03/17/22 00:00 98 F 03/16/22 22:00 93 H 03/16/22 21:23 95 H 34 H 97 03/16/22 20:50 95 H 34 H 101/75 98 03/16/22 20:00 97.3 F L 03/16/22 17:21 92 H 28 H 111/59 98 03/16/22 17:11 99 H 34 H 97/76 99 03/16/22 17:01 95 H 34 H 97/76 97 03/16/22 17:00 95 H 34 H 97 03/16/22 16:51 96 H 34 H 109/85 97 03/16/22 16:41 100 H 37 H 113/83 98 - Physical Examination General: No Apparent Distress HEENT: Positive: PERRL Neck: Positive: trachea midline Cardiac: Positive: Reg Rate and Rhythm Lungs: Positive: Decreased Breath Sounds Neuro: Positive: Grossly Intact Abdomen: Positive: Soft, Active Bowel Sounds Skin: Negative: Rash, Suspicious Lesions, Ulceration Extremities: Present: upper extr. pulses. Absent: edema - Labs and Meds CBC 03/17/22 Range/Units 04:22 WBC 12.2 H (4.5-11.0) K/mm3 RBC 4.35 (3.65-5.03) M/mm3 Hgb 13.1 (11.8-15.2) gm/dl Hct 39.7 (35.5-45.6) % Plt Count 271 (140-440) K/mm3 Lymph # (Auto) 2.0 (1.2-5.4) K/mm3 [place] # (Auto) 1.0 H (0.0-0.8) K/mm3 Eos # (Auto) 0.0 (0.0-0.4) K/mm3 Baso # (Auto) 0.0 (0.0-0.1) K/mm3 Comprehensive Metabolic Panel 03/17/22 Range/Units 04:22 Sodium 142 (137-145) mmol/L Potassium 5.4 H (3.6-5.0) mmol/L Chloride 104.8 (98-107) mmol/L Carbon Dioxide 23 (22-30) mmol/L BUN 35 H (9-20) mg/dL Creatinine 1.2 (0.8-1.3) mg/dL Glucose 106 H (75-100) mg/dL Calcium 8.8 (8.4-10.2) mg/dL - Imaging and Cardiology Echo: report reviewed Cardiac cath: report reviewed - Telemetry EKG Rhythm: Sinus Rhythm - EKG Sinus rhythms and dysrhythmias: sinus rhythm - Allied health notes Allied health notes reviewed: nursing
[2022-03-17] MEDS ORDERED: SODIUM CHLORIDE 0.9% 500 ML 500 ML IV SCH (17:00)
[2022-03-17 18:24] LABS: BUN/Creatinine Ratio 33; Blood Urea Nitrogen 40 mg/dL (9-20); Hemolysis Index 12
[2022-03-17] MEDS ORDERED: AMIODARONE 150 MG in DEXTROSE 5% IN WATER 97 ML IV ONE (21:00)
[2022-03-17] MEDS ORDERED: AMIODARONE 900 MG in DEXTROSE 5% IN WATER 482 ML IV SCH (22:00)
[2022-03-17] MEDS: IPRATROPIUM/ALBUTEROL SULFATE 3 ML AMPUL.NEB IH SCH (22:29)
[2022-03-17] MEDS ORDERED: ALPRAZolam 0.25 MG TAB PO ONE (22:45)
--- NOTE | 2022-03-18 02:38 | Consultation ---
DATE OF CONSULTATION: 03/17/2022 PULMONARY CRITICAL CARE CONSULT NOTE CONSULTING PHYSICIAN: Dr. Jono Jacobs. REASON FOR CONSULTATION: Acute pulmonary edema, acute hypoxemic respiratory failure. Non-ST elevation myocardial infarction. CHIEF COMPLAINT AND HISTORY OF PRESENT ILLNESS: The patient is a now 51-year-old male, denied any significant past medical history, who presented to the Emergency Room complaining of chest pain. He also complained of increasing shortness of breath getting worse over about 1-2 weeks. It was constant in nature, substernal. He has had an occasional cough that was nonproductive. He has had some episodes of nausea and vomiting. He denied any fevers or chills. He denied any new rash on his body. He denied any headaches. He denied any global or constitutional type symptoms. No diarrhea. He denies any sick contact or any contact with anyone with COVID-19. He does admit to not having been vaccinated against COVID-19. In the Emergency Room, he was found to be hypoxemic and a chest x-ray shows bilateral overt pulmonary edema. His BNP was elevated. His troponin was up at 1.46. The patient was started on acute coronary syndrome protocol. He was placed on IV heparin therapy and required continuous bilevel positive airway pressure ventilation therapy to manage severe hypoxemic respiratory failure. We are asked to assist with management. When I stopped by to see him, he was resting in bed. He was alert. He was breathing about 48 times per minute on BiPAP. He denied chest pain. He admitted to being anxious. He denied any nausea. He denies any new-onset leg pain or swelling, either unilaterally or bilaterally or any suggestion of a deep venous thrombosis. He does have a 10+ pack year tobacco smoking history. This really is as much of the history of presentation as I have. PAST MEDICAL HISTORY: He denied any except for tobacco use disorder. PAST SURGICAL HISTORY: He denied. MEDICATIONS: He was on at the time I stopped by to see him, according to the medication administration record included the following: He was on heparin drip per protocol for the ACS protocol. He had received azithromycin 500 mg IV x 1, Rocephin 1 gram IV x1. He received Lasix 40 mg IV one-time dose, morphine 2 mg IV q. 4 hours p.r.n. moderate pain and 4 mg IV q. 4 hours p.r.n. severe pain. Nitroglycerin 2% patch was placed to the chest wall once and had received some breathing treatments. ALLERGIES: No known drug allergies. DIET: Thin gentleman. Denies acute weight loss or gain in the preceding few weeks to months. FAMILY AND SOCIAL HISTORY: Lives in the community, has a 10+ pack year tobacco smoking history. He has kids. FAMILY HISTORY: Otherwise, noncontributory. REVIEW OF SYSTEMS: He denies loss of consciousness. No new onset seizures. No new onset focal weakness. He denies gross hematochezia or melena. Denies gross hematuria or dysuria. He has had orthopnea. He denies paroxysmal nocturnal dyspnea. He denies heat or cold intolerance. Denies polydipsia, polyuria. Complete 13-system review of system was obtained. Pertinent positives and/or negatives as in body of history above, otherwise noncontributory. PHYSICAL EXAMINATION: VITAL SIGNS: At presentation, he was afebrile, temperature 97.8 degrees Fahrenheit, pulse of 117, respiratory rate 22, blood pressure 76/46, O2 sats were about 91%. At the time I saw him, he was on bilevel positive airway pressure ventilation therapy, IPAP 16, EPAP of 8 and a backup rate of 16 and 60% FiO2. GENERAL: He is a middle-aged male. Normocephalic, atraumatic on the BiPAP machine with markedly increased respiratory effort at rest. HEAD, EYES, EARS, NOSE AND THROAT: Anicteric. No conjunctival erythema. Oropharynx was moist. NECK: No gross jugular venous distention, no thyromegaly. Grossly, there were no palpable lymph nodes in the supraclavicular or submandibular lymph node chains. LUNGS: Auscultation of both lung malone revealed bilateral rales. Slightly diminished breath sounds. No active wheezing. HEART: Sounds 1 and 2 are heard, regular rate and rhythm at the time of my evaluation without overt rubs or murmurs. ABDOMEN: Soft, flat, bowel sounds are positive, nontender, no palpable hepatosplenomegaly. EXTREMITIES: Without overt digital clubbing, cyanosis and no pedal edema. Pedal pulses are 2+ bilaterally. NEUROLOGIC: Pupils are equal, round, about 4 mm, reactive to light. Extraocular muscle movements were intact. He moves all 4 extremities spontaneously. SKIN: His skin is of normal turgor in the areas I examined without overt cellulitis or rash. Please see the wound care nurses' notes for full description of his skin. PSYCHIATRIC: Mood and affect were anxious. He had intact judgment and insight. LABORATORY DATA: From my review are as follows: Admission white cell count 16,300, hemoglobin 14.0, hematocrit 42.4, platelet count 273. No manual differential. INR 1.06. Serum sodium 137, potassium 4.6, chloride 103, bicarbonate 19, BUN 25, creatinine 1.0, glucose 137. Lactic acid level was 2.3. Troponin 1.46. Liver function test within normal limits. LDL cholesterol was 134. Urinalysis was negative for nitrites and leukocyte esterase. Coronavirus PCR test has come back negative. Two sets of blood cultures, no growth to date. A chest x-ray was done. Essentially, it shows bilateral dense infiltrates with hilar preponderance, gross cardiomegaly, evidence of hyperinflation with flattening of the right hemidiaphragm, no gross pneumothorax, no gross bony fracture, small if any pleural effusions. A 2D echocardiogram was done and the results are pending. ASSESSMENT: 1. Acute hypoxemic respiratory failure secondary #2. 2. Acute bilateral pulmonary edema secondary to #3. 3. Likely acute exacerbation of congestive heart failure. 4. Leukocytosis. 5. Tobacco use disorder. 6. Mild metabolic acidosis. 7. Lactic acidosis. PLAN: I do agree with scheduling diuretic therapy. I have increased the set rates on the BiPAP machine to try and reduce his own work of breathing. I have increased the set rate to 30 per minute and advised him to slow down his breathing, let him know that the machine will take over. Certainly, it will help with alveolar recruitment, improve oxygenation, but also will improve cardiovascular hemodynamics, reducing preload and trust administrative assistant with afterload. I do not really think we are dealing with pneumonia in this condition. I will elect to watch him clinically off antibiotics therapy. A procalcitonin level will be ordered to help guide clinical decision making and we will watch his clinical improvement with diuresis. He is going to be placed on GI prophylaxis with Pepcid, DVT prophylaxis with heparin. Flu and pneumonia vaccination will be addressed per protocol. Acute coronary syndrome workup is ongoing. I will defer to Cardiology. Thank you very much for the consult, Dr. Jacobs. We will follow along and make further recommendations as picture progresses/becomes clearer. He is critically ill on life-sustaining interventions including the IV heparin therapy and the continuous noninvasive ventilation at very high risk of from cardiopulmonary system decompensation. At this time, I spent about 35-40 minutes of critical care time without overlap and excluding any procedural time that may be necessary. TID: [id number] RECEIPT: [id number] CRISTINA/JESSICA
[2022-03-18] MEDS: HEPARIN/ 0.45% NACL DRIP 25,000 UNIT/500 ML BAG IV SCH ×2 (04:47→19:46)
[2022-03-18 05:35] LABS: Hematocrit 39.7 % (35.5-45.6); Hemoglobin 13.1 gm/dl (11.8-15.2); Mean Corpuscular HGB Conc 33 % (32-34); Mean Corpuscular Volume 91 fl (84-94); Platelet Count 253 K/mm3 (140-440); Red Blood Count 4.35 M/mm3 (3.65-5.03); Red Cell Distribution Width 13.5 % (13.2-15.2)
[2022-03-18 05:38] LABS: BUN/Creatinine Ratio 36; Blood Urea Nitrogen 43 mg/dL (9-20); Hemolysis Index 11
[2022-03-18] MEDS: FUROSEMIDE 40 MG/4 ML INJ IV SCH ×2 (06:15→18:17)
[2022-03-18] MEDS: IPRATROPIUM/ALBUTEROL SULFATE 3 ML AMPUL.NEB IH SCH ×4 (08:42→19:53)
[2022-03-18] MEDS: ASPIRIN EC 325 MG TAB PO SCH (09:00)
[2022-03-18] MEDS: FAMOTIDINE 20 MG/2 ML INJ IV SCH (09:00)
--- NOTE | 2022-03-18 10:23 | Electrocardiograph Report ---
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
--- NOTE | 2022-03-18 10:26 | Electrocardiograph Report ---
[facility] Test Date: 2022-03-17 Test Time: 19:33:02 Pat Name: CHARLY YAN Department: Room: A260 1 Gender: M [employer]: ESME : 1970 Requested By: GEE ADAN Order Number: [id number] Reading MD: Robert Linder Measurements Intervals [place] Rate: 128 P: IA: QRS: 68 QRSD: 87 T: 171 QT: 281 QTc: 410 Interpretive Statements Atrial fibrillation Ventricular premature complex Probable inferior infarct, recent Anterior infarct, old Lateral leads are also involved Compared to ECG 03/17/2022 10:51:21 Ventricular premature complex(es) now present Sinus tachycardia no longer present T-wave abnormality no longer present Myocardial infarct finding still present Electronically Signed On 03-18-2022 10:25:59 EDT by Robert Linder
--- NOTE | 2022-03-18 12:50 | Progress Note ---
Assessment and Plan Acute hypoxemic respiratory failure Acute bilateral pulmonary edema Acute exacerbation of congestive heart failure Atrial Fibrillation with RVR Leukocytosis Tobacco use disorder Lactic acidosis (disease pathophysiology and care plan including secondary prevention modalities described to patient and in laymen's terms per her 's request) - started on oral Amiodarone re: new onset A-fib - tentatively for LHCath in am - reduced IPAP to 10 cm H2O and will schedule qhs (re: increased work of breathing) - prn Xanax re: anxiety - CXR in am - continue care as below otherwise; - continue to wean supplemental oxygen to keep O2 sats > 90% - continue Bronchodilators (JENNYFER & LABA) with pulm hygiene per RT - continue systemic steroids with slow taper - continue inhaled corticosteroids - continue to avoid nephrotoxins, renally dose all medications - continue mobility protocols to prevent pressure ulcers - PT/OT as tolerated - Wound care per RN/WCT - continue accuchecks with glycemic control per SSI for target blood glucose < 180 mg/dL - Smoking cessation strongly counseled at the bedside - home oxygen evaluation at discharge - GI & VTE prophylaxis - Flu & pneumovax per protocol - Pulmonary out patient follow up for PFTs and optimization of respiratory status - continue other care per attending / other consultants - prn analgesia per pain score ... re-evaluate in am & prn I have spent ( >35 ) minutes with the patient w/ >50% of the time spent counseling and/or coordinating care for this patient. Counseling topics and/or how time was spent coordinating patient's care is outlined in the impression and plan above. Subjective Date of service: 03/18/22 Principal diagnosis: AHRF; AE-CHF; Acute pulmonary edema; Leukocytosis; Lactic acidosis Interval history: Patient is seen today for: Acute hypoxemic respiratory failure; AE-CHF; Acute pulmonary edema; Leukocytosis; Lactic acidosis Seen and examined at bedside; 24hour events reviewed; nursing and respiratory care staff consulted; no adverse overnight events reported to me; resting peacefully in bed; work of breathing increased but a significant amount of anxiety; his is visiting; denies acute chest pains or palpitations; denies N/V/F/C Objective Vital Signs - 12hr 03/18/22 03/18/22 03/18/22 01:00 01:30 02:00 Temperature Pulse Rate 107 H 99 H 107 H Pulse Rate [ Bilateral Throughout] Pulse Rate [ From Monitor] Pulse Rate [ Posterior Bilateral Throughout] Respiratory 39 H 37 H 39 H Rate Respiratory Rate [Bilateral Throughout] Respiratory Rate [Posterior Bilateral Throughout] Blood Pressure 100/67 100/67 103/76 O2 Sat by Pulse 89 92 91 Oximetry 03/18/22 03/18/22 03/18/22 02:30 03:00 03:22 Temperature Pulse Rate 108 H 109 H 98 H Pulse Rate [ Bilateral Throughout] Pulse Rate [ From Monitor] Pulse Rate [ Posterior Bilateral Throughout] Respiratory 40 H 34 H 30 H Rate Respiratory Rate [Bilateral Throughout] Respiratory Rate [Posterior Bilateral Throughout] Blood Pressure 99/72 102/72 102/72 O2 Sat by Pulse 90 88 95 Oximetry 03/18/22 03/18/22 03/18/22 03:30 04:00 04:30 Temperature 97.7 F Pulse Rate 100 H 94 H 92 H Pulse Rate [ Bilateral Throughout] Pulse Rate [ 90 From Monitor] Pulse Rate [ Posterior Bilateral Throughout] Respiratory 40 H 37 H 32 H Rate Respiratory Rate [Bilateral Throughout] Respiratory Rate [Posterior Bilateral Throughout] Blood Pressure 111/79 96/74 100/77 O2 Sat by Pulse 94 98 98 Oximetry 03/18/22 03/18/22 03/18/22 05:00 05:30 06:00 Temperature Pulse Rate 91 H 87 87 Pulse Rate [ Bilateral Throughout] Pulse Rate [ From Monitor] Pulse Rate [ Posterior Bilateral Throughout] Respiratory 29 H 25 H 27 H Rate Respiratory Rate [Bilateral Throughout] Respiratory Rate [Posterior Bilateral Throughout] Blood Pressure 103/78 98/76 101/76 O2 Sat by Pulse 97 98 Oximetry 03/18/22 03/18/22 03/18/22 06:30 07:00 07:20 Temperature Pulse Rate 105 H 86 84 Pulse Rate [ Bilateral Throughout] Pulse Rate [ From Monitor] Pulse Rate [ Posterior Bilateral Throughout] Respiratory 34 H 27 H Rate Respiratory Rate [Bilateral Throughout] Respiratory Rate [Posterior Bilateral Throughout] Blood Pressure 101/76 97/75 O2 Sat by Pulse 98 98 Oximetry 03/18/22 03/18/22 03/18/22 07:30 08:00 08:30 Temperature 97.2 F L Pulse Rate 101 H 88 95 H Pulse Rate [ Bilateral Throughout] Pulse Rate [ 84 From Monitor] Pulse Rate [ Posterior Bilateral Throughout] Respiratory 32 H 25 H 35 H Rate Respiratory Rate [Bilateral Throughout] Respiratory Rate [Posterior Bilateral Throughout] Blood Pressure 91/69 98/76 106/80 O2 Sat by Pulse 96 99 96 Oximetry 03/18/22 03/18/22 03/18/22 08:42 08:44 09:00 Temperature Pulse Rate 105 H Pulse Rate [ Bilateral Throughout] Pulse Rate [ From Monitor] Pulse Rate [ 90 Posterior Bilateral Throughout] Respiratory 29 H Rate Respiratory Rate [Bilateral Throughout] Respiratory 24 Rate [Posterior Bilateral Throughout] Blood Pressure 110/80 O2 Sat by Pulse 95 93 Oximetry 03/18/22 03/18/22 03/18/22 09:30 10:00 10:30 Temperature Pulse Rate 101 H 104 H 98 H Pulse Rate [ Bilateral Throughout] Pulse Rate [ From Monitor] Pulse Rate [ Posterior Bilateral Throughout] Respiratory 37 H 33 H 34 H Rate Respiratory Rate [Bilateral Throughout] Respiratory Rate [Posterior Bilateral Throughout] Blood Pressure 103/77 105/76 99/76 O2 Sat by Pulse 93 94 91 Oximetry 03/18/22 03/18/22 03/18/22 11:00 11:30 11:50 Temperature 97.7 F Pulse Rate 103 H 108 H Pulse Rate [ Bilateral Throughout] Pulse Rate [ From Monitor] Pulse Rate [ Posterior Bilateral Throughout] Respiratory 34 H 14 Rate Respiratory Rate [Bilateral Throughout] Respiratory Rate [Posterior Bilateral Throughout] Blood Pressure 92/67 92/67 O2 Sat by Pulse 89 94 Oximetry 03/18/22 03/18/22 03/18/22 12:00 12:30 12:35 Temperature Pulse Rate 102 H 100 H Pulse Rate [ 98 H Bilateral Throughout] Pulse Rate [ 96 H From Monitor] Pulse Rate [ 98 H Posterior Bilateral Throughout] Respiratory 36 H 44 H Rate Respiratory 18 Rate [Bilateral Throughout] Respiratory 18 Rate [Posterior Bilateral Throughout] Blood Pressure 107/84 97/77 O2 Sat by Pulse 96 91 Oximetry Constitutional: appears uncomfortable, other (middle aged male with mildly increased respiratory effort at rest) Eyes: non-icteric ENT: oropharynx moist Neck: supple, no lymphadenopathy, no JVD Effort: mildly labored Ascultation: Bilateral: rales (bases) Percussion: Bilateral: not dull Cardiovascular: regular rate and rhythm Gastrointestinal: normoactive bowel sounds, soft, non-tender, non-distended Integumentary: normal Extremities: no cyanosis, pink and warm, pulses normal, no ischemia or petechiae Neurologic: non-focal exam, pupils equal and round, CN II-XII normal, motor strength normal and Psychiatric: mood appropriate, affect normal CBC and BMP: 03/18/22 04:47 03/18/22 04:47 ABG, PT/INR, D-dimer: PT/INR, D-dimer PT 15.0 Sec. (12.2-14.9) H 03/16/22 05:26 INR 1.06 (0.87-1.13) 03/16/22 05:26 Abnormal lab findings: Abnormal Labs 03/16/22 03/16/22 03/16/22 03:41 03:41 03:41 WBC 16.3 H Lymph % (Auto) 8.4 L [place] % (Auto) Lymph # (Auto) [place] # (Auto) 1.0 H Seg Neutrophils % 85.4 H Seg Neutrophils # 13.9 H PT Heparin Anti-Xa Level Sodium Potassium Chloride Carbon Dioxide 19 L BUN 25 H Glucose 137 H POC Glucose Lactic Acid Calcium Magnesium CK-MB (CK-2) CK-MB (CK-2) Rel Index Troponin T 1.460 H* NT-Pro-B Natriuret Pep LDL Cholesterol Direct 134 H HDL Cholesterol 25 L 03/16/22 03/16/22 03/16/22 03:41 05:26 06:14 WBC 16.6 H Lymph % (Auto) 6.1 L [place] % (Auto) Lymph # (Auto) 1.0 L [place] # (Auto) 0.9 H Seg Neutrophils % 88.3 H Seg Neutrophils # 14.7 H PT 15.0 H Heparin Anti-Xa Level Sodium Potassium Chloride Carbon Dioxide BUN Glucose POC Glucose Lactic Acid 2.30 H* Calcium Magnesium CK-MB (CK-2) CK-MB (CK-2) Rel Index Troponin T NT-Pro-B Natriuret Pep LDL Cholesterol Direct HDL Cholesterol 03/16/22 03/16/22 03/16/22 06:19 08:19 08:19 WBC Lymph % (Auto) [place] % (Auto) Lymph # (Auto) [place] # (Auto) Seg Neutrophils % Seg Neutrophils # PT Heparin Anti-Xa Level Sodium Potassium Chloride Carbon Dioxide 18 L BUN 24 H Glucose 138 H POC Glucose Lactic Acid 2.60 H* 2.30 H* Calcium 8.2 L Magnesium CK-MB (CK-2) CK-MB (CK-2) Rel Index Troponin T NT-Pro-B Natriuret Pep LDL Cholesterol Direct HDL Cholesterol 03/16/22 03/16/22 03/16/22 17:41 17:41 17:41 WBC Lymph % (Auto) [place] % (Auto) Lymph # (Auto) [place] # (Auto) Seg Neutrophils % Seg Neutrophils # PT Heparin Anti-Xa Level < 0.10 L Sodium Potassium Chloride Carbon Dioxide BUN Glucose POC Glucose Lactic Acid Calcium Magnesium CK-MB (CK-2) CK-MB (CK-2) Rel Index Troponin T 1.420 H* 1.410 H* NT-Pro-B Natriuret Pep LDL Cholesterol Direct HDL Cholesterol 03/16/22 03/16/22 03/17/22 23:58 Unknown 00:39 WBC Lymph % (Auto) [place] % (Auto) Lymph # (Auto) [place] # (Auto) Seg Neutrophils % Seg Neutrophils # PT Heparin Anti-Xa Level < 0.10 L Sodium Potassium Chloride Carbon Dioxide BUN Glucose POC Glucose 109 H Lactic Acid Calcium Magnesium CK-MB (CK-2) 9.0 H CK-MB (CK-2) Rel Index 5.6 H Troponin T NT-Pro-B Natriuret Pep 8846 H LDL Cholesterol Direct HDL Cholesterol 03/17/22 03/17/22 03/17/22 04:22 04:22 08:37 WBC 12.2 H Lymph % (Auto) [place] % (Auto) 7.9 H Lymph # (Auto) [place] # (Auto) 1.0 H Seg Neutrophils % 74.8 H Seg Neutrophils # 9.1 H PT Heparin Anti-Xa Level 0.15 L Sodium Potassium 5.4 H Chloride Carbon Dioxide BUN 35 H Glucose 106 H POC Glucose Lactic Acid Calcium Magnesium CK-MB (CK-2) CK-MB (CK-2) Rel Index Troponin T NT-Pro-B Natriuret Pep LDL Cholesterol Direct HDL Cholesterol 03/17/22 03/17/22 03/17/22 15:12 17:17 17:17 WBC Lymph % (Auto) [place] % (Auto) Lymph # (Auto) [place] # (Auto) Seg Neutrophils % Seg Neutrophils # PT Heparin Anti-Xa Level 0.10 L Sodium Potassium Chloride Carbon Dioxide 21 L BUN 40 H Glucose 106 H POC Glucose 134 H Lactic Acid Calcium 8.0 L Magnesium CK-MB (CK-2) CK-MB (CK-2) Rel Index Troponin T NT-Pro-B Natriuret Pep LDL Cholesterol Direct HDL Cholesterol 03/17/22 03/18/22 03/18/22 23:26 00:55 04:47 WBC 15.1 H Lymph % (Auto) [place] % (Auto) Lymph # (Auto) [place] # (Auto) Seg Neutrophils % Seg Neutrophils # PT Heparin Anti-Xa Level 0.17 L Sodium Potassium Chloride Carbon Dioxide BUN Glucose POC Glucose 126 H Lactic Acid Calcium Magnesium CK-MB (CK-2) CK-MB (CK-2) Rel Index Troponin T NT-Pro-B Natriuret Pep LDL Cholesterol Direct HDL Cholesterol 03/18/22 03/18/22 04:47 11:32 WBC Lymph % (Auto) [place] % (Auto) Lymph # (Auto) [place] # (Auto) Seg Neutrophils % Seg Neutrophils # PT Heparin Anti-Xa Level Sodium 134 L Potassium Chloride 97.2 L Carbon Dioxide 20 L BUN 43 H Glucose 136 H POC Glucose 121 H Lactic Acid Calcium 8.0 L Magnesium 2.50 H CK-MB (CK-2) CK-MB (CK-2) Rel Index Troponin T NT-Pro-B Natriuret Pep LDL Cholesterol Direct HDL Cholesterol Chest x-ray: pending Allied health notes reviewed: nursing
[2022-03-18] MEDS: AMIODARONE 200 MG TAB PO SCH ×2 (12:54→21:06)
--- NOTE | 2022-03-18 14:14 | Progress Note ---
Assessment and Plan Patient 50-year-old male who presents to the ED for complaint of shortness of breath for 2 weeks NSTEMI HFrEF A. fib with RVR Suspect ischemic cardiomyopathy Echo 03/16/2022-EF 10 to 15%. LV is moderately dilated. Severe global hypokinesis with LV. Right ventricle is borderline dilated. Left atrium mildly dilated. Moderate pulmonary hypertension Plan: Patient remains chest pain-free Patient had episode of A. fib RVR overnight currently on IV amiodarone. Patient currently sinus rhythm 90s to low 100s. We will stop amiodarone drip and convert to amiodarone 20 mg p.o. twice daily Patient currently on aspirin, Lipitor, Lasix, heparin drip Continue IV diuretics repeat BMP in the a.m. Strict I&O's Plan for cardiac cath in the a.m. Patient to be n.p.o. after midnight Will hold CLARITA or ARB's and beta-wilver due to soft blood pressures Continue to closely monitor Plan of care discussed with patient who verbalized understanding and acknowledgment Patient seen in conjunction with Dr. Linder who agrees with this plan of care - Patient Problems (1) Hypoxia Current Visit: Yes Status: Acute (2) NSTEMI (non-ST elevated myocardial infarction) Current Visit: Yes Status: Acute (3) New onset of congestive heart failure Current Visit: Yes Status: Acute (4) Pulmonary edema Current Visit: Yes Status: Acute (5) Tobacco abuse Current Visit: Yes Status: Acute Subjective Date of service: 03/18/22 Principal diagnosis: AHRF; AE-CHF; Acute pulmonary edema; Leukocytosis; Lactic acidosis Interval history: Patient resting in bed in no acute distress. Patient reports feeling well Patient had an episode of A. fib with RVR overnight and was started on amiodarone bolus and drip. Currently patient is sinus 90s to low 100s on monitor Objective Vital Signs Temp Pulse Pulse Pulse Pulse Resp Resp 03/18/22 14:00 101 H 34 H 03/18/22 13:30 103 H 35 H 03/18/22 13:00 103 H 39 H 03/18/22 12:35 98 H 98 H 18 03/18/22 12:30 100 H 44 H 03/18/22 12:00 102 H 96 H 36 H 03/18/22 11:50 97.7 F 03/18/22 11:30 108 H 14 03/18/22 11:00 103 H 34 H 03/18/22 10:30 98 H 34 H 03/18/22 10:00 104 H 33 H 03/18/22 09:30 101 H 37 H 03/18/22 09:00 105 H 29 H 03/18/22 08:44 03/18/22 08:42 90 03/18/22 08:30 95 H 35 H 03/18/22 08:00 97.2 F L 88 84 25 H 03/18/22 07:30 101 H 32 H 03/18/22 07:20 84 03/18/22 07:00 86 27 H 03/18/22 06:30 105 H 34 H 03/18/22 06:00 87 27 H 03/18/22 05:30 87 25 H 03/18/22 05:00 91 H 29 H 03/18/22 04:30 92 H 32 H 03/18/22 04:00 97.7 F 94 H 90 37 H 03/18/22 03:30 100 H 40 H 03/18/22 03:22 98 H 30 H 03/18/22 03:00 109 H 34 H 03/18/22 02:30 108 H 40 H 03/18/22 02:00 107 H 39 H 03/18/22 01:30 99 H 37 H 03/18/22 01:00 107 H 39 H 03/18/22 00:30 101 H 31 H 03/18/22 00:00 97.8 F 113 H 103 H 35 H 03/17/22 23:30 100 H 36 H 03/17/22 23:00 109 H 38 H 03/17/22 22:48 03/17/22 22:31 113 H 113 H 16 03/17/22 22:30 110 H 22 03/17/22 22:00 111 H 41 H 03/17/22 21:38 03/17/22 21:30 112 H 42 H 03/17/22 21:00 130 H 42 H 03/17/22 20:39 97.6 F 03/17/22 20:30 113 H 42 H 03/17/22 20:00 122 H 129 H 38 H 03/17/22 19:56 130 H 03/17/22 19:30 128 H 30 H 03/17/22 19:00 128 H 38 H 05/02/22 18:30 131 H 41 H 03/17/22 18:00 126 H 40 H 03/17/22 17:31 125 H 42 H 03/17/22 17:01 123 H 36 H 03/17/22 16:31 128 H 40 H 03/17/22 16:21 132 H 03/17/22 16:17 130 H 36 H 03/17/22 16:00 119 H 41 H 03/17/22 15:55 98.6 F 03/17/22 15:31 126 H 45 H 03/17/22 15:00 134 H 28 H 03/17/22 14:31 119 H 38 H Resp BP Pulse Ox 03/18/22 14:00 105/78 93 03/18/22 13:30 111/75 92 03/18/22 13:00 105/73 92 03/18/22 12:35 18 03/18/22 12:30 97/77 91 03/18/22 12:00 107/84 96 03/18/22 11:50 03/18/22 11:30 92/67 94 03/18/22 11:00 92/67 89 03/18/22 10:30 99/76 91 03/18/22 10:00 105/76 94 03/18/22 09:30 103/77 93 03/18/22 09:00 110/80 93 03/18/22 08:44 95 03/18/22 08:42 24 03/18/22 08:30 106/80 96 03/18/22 08:00 98/76 99 03/18/22 07:30 91/69 96 03/18/22 07:20 03/18/22 07:00 97/75 98 03/18/22 06:30 101/76 98 03/18/22 06:00 101/76 98 03/18/22 05:30 98/76 05 05:00 103/78 97 03/18/22 04:30 100/77 98 03/18/22 04:00 96/74 98 03/18/22 03:30 111/79 94 03/18/22 03:22 102/72 95 03/18/22 03:00 102/72 88 03/18/22 02:30 99/72 90 03/18/22 02:00 103/76 91 05/03/22 01:30 100/67 92 03/18/22 01:00 100/67 89 03/18/22 00:30 104/77 92 03/18/22 00:00 48/28 91 03/17/22 23:30 81/57 93 03/17/22 23:00 86/61 03/17/22 22:48 95 03/17/22 22:31 18 03/17/22 22:30 102/79 92 03/17/22 22:00 108/75 92 03/17/22 21:38 93 03/17/22 21:30 95/73 90 03/17/22 21:00 90/ 93 03/17/22 20:39 03/17/22 20:30 93/ 93 03/17/22 20:00 97/71 92 03/17/22 19:56 03/17/22 19:30 97/ 93 03/17/22 19:00 / 92 03/17/22 18:30 94/71 92 03/17/22 18:00 94/ 92 03/17/22 17:31 89/46 92 03/17/22 17:01 89/46 93 03/17/22 16:31 101/78 92 03/17/22 16:21 03/17/22 16:17 99 03/17/22 16:00 101/78 95 03/17/22 15:55 03/17/22 15:31 103/77 95 03/17/22 15:00 103/77 93 03/17/22 14:31 60/39 94 - Physical Examination General: No Apparent Distress HEENT: Positive: PERRL Neck: Positive: trachea midline Cardiac: Positive: Reg Rate and Rhythm Lungs: Positive: Decreased Breath Sounds Neuro: Positive: Grossly Intact Abdomen: Positive: Soft, Active Bowel Sounds Skin: Negative: Rash, Suspicious Lesions, Ulceration Extremities: Present: upper extr. pulses. Absent: edema - Labs and Meds CBC 03/18/22 Range/Units 04:47 WBC 15.1 H (4.5-11.0) K/mm3 RBC 4.35 (3.65-5.03) M/mm3 Hgb 13.1 (11.8-15.2) gm/dl Hct 39.7 (35.5-45.6) % Plt Count 253 (140-440) K/mm3 Comprehensive Metabolic Panel 03/17/22 03/18/22 Range/Units 17:17 04:47 Sodium 140 134 L (137-145) mmol/L Potassium 4.3 D 4.3 (3.6-5.0) mmol/L Chloride 101.1 97.2 L (98-107) mmol/L Carbon Dioxide 21 L 20 L (22-30) mmol/L BUN 40 H 43 H (9-20) mg/dL Creatinine 1.2 1.2 (0.8-1.3) mg/dL Glucose 106 H 136 H (75-100) mg/dL Calcium 8.0 L 8.0 L (8.4-10.2) mg/dL - Imaging and Cardiology Echo: report reviewed Cardiac cath: report reviewed - Telemetry EKG Rhythm: Sinus Rhythm - EKG Sinus rhythms and dysrhythmias: sinus rhythm - Allied health notes Allied health notes reviewed: nursing
--- NOTE | 2022-03-18 17:29 | Progress Note ---
Assessment and Plan Assessment and plan: This is a a 51-year-old female with no known medical history admitted with NSTEMI, new onset CHF to the IMCU however was transferred to ICU for increased work of breathing and tachypnea requiring continuous BiPAP Neuro: NAD -Avoid delirium -Reorientation as needed -Maintain sleep-wake cycle -As needed analgesia Cardiac: NSTEMI, new onset CHF, A. fib with RVR, suspected ischemic cardiomyopathy -Cardiology consulted, appreciate recommendations -Blood pressure monitoring per protocol -Echocardiogram shows LVEF of 10 to 15%, severe global hypokinesis of left ventricle, right ventricle is borderline dilated, moderate pulmonary hypertension -S/p amiodarone drip transition to p.o. amiodarone -Lasix twice daily -Hold CLARITA/ARB's and beta-blockers -Aspirin, Lipitor -as needed nitro, morphine -Heparin drip -Plan for left heart cath in the a.m. Respiratory: Acute hypoxic respiratory failure secondary to pulmonary edema, tobacco dependence -IC for transfer for increased work of breathing and tachypnea requiring continuous BiPAP -CCM consulted, appreciate recommendations -BiPAP nightly -Weaned to nasal cannula during day -Pulmonary hygiene -SPO2 monitoring -Smoking cessation counseling provided -Patient is eager to stop smoking GI: NAD -24 hours -Cardiac diet -[employer] Dr. Snow for left heart cath on 03/19 -PPI -BR: Colace : Metabolic acidosis -Diuresis with Lasix -Strict intake and output -Renally dose medications -Avoid nephrotoxic medications -Daily weights -Trend BMP ID: NAD -f/u blood culture -Monitor WBC and temperature curve Endo: NAD -Avoid hypoglycemia Heme: Leukocytosis -Trend CBC -Transfuse hemoglobin less than 7 -Anticoagulation with heparin drip -Monitor for signs of bleeding -SCDs to BLE while in bed The high probability of a clinically significant, sudden or life threatening deterioration of the [multiple] system(s) required my full and direct attention, intervention and personal management. The aggregate critical care time was [60] minutes. This time is in addition to time spent performing reported procedures but includes the following: [x] Data Review and interpretation [x] Patient assessment and monitoring of vital signs [x] Documentation [x] Medication orders and management Disposition Plan: icu Total Time Spent with Patient (Minutes): 60 History Interval history: This is a 51-year-old male with no known medical history except nicotine abuse (1 pack/day for over 30 years) who presented to the emergency department on 03/16 with complaints of shortness of breath over the past 1 and half weeks, constant substernal chest pain, occasional nonproductive cough, nausea and vomiting and dizziness. Upon arrival to the emergency department patient was tachypneic and tachycardic and SPO2 was 91% on room air and was placed on BiPAP with significant improvement. With work-up in the emergency department included a CXR which showed pulmonary edema, elevated proBNP of 8846, elevated troponin of 1.46, and leukocytosis. Patient was placed on heparin drip and admitted with NSTEMI with pulmonary edema. Cardiology and CCM were consulted in the emergency department. Hospital Course to Date: 03/17: Patient remains on continuous Bipap, respiratory status improved, RR in the 20s. Remains on IV lasix BID, 2D Echo pending. Cardiology and CCM following. Plan for possible stress test today. Patient remains on heparin gtt per protocol. Wean O2 supplementation as tolerated. 03/16: Overnight patient was noted to be in atrial fibrillation and started on amiodarone drip which has been transitioned to p.o. Patient wears BiPAP overnight however is transition to nasal cannula during the day. Left heart cath scheduled for tomorrow. Hospitalist Physical - Constitutional Vitals: Temp Pulse Resp BP Pulse Ox 98 F 114 H 40 H 105/74 92 03/18/22 16:00 03/18/22 17:00 03/18/22 17:00 03/18/22 17:00 03/18/22 17:00 General appearance: Present: no acute distress, well-nourished - EENT Eyes: Present: PERRL, EOM intact ENT: hearing intact, clear oral mucosa, dentition normal - Neck Neck: Present: normal ROM - Respiratory Respiratory effort: normal Respiratory: bilateral: CTA - Cardiovascular Rhythm: regular Heart Sounds: Present: S1 & S2. Absent: systolic murmur, diastolic murmur - Extremities Extremities: no ischemia, pulses intact, pulses symmetrical, No edema, normal temperature, normal color, Full ROM Peripheral Pulses: within normal limits - Abdominal General gastrointestinal: soft, non-tender, non-distended, normal bowel sounds - Integumentary Integumentary: Present: clear, warm, dry - Psychiatric Psychiatric: appropriate mood/affect, cooperative - Neurologic Neurologic: CNII-XII intact, moves all extremities - Allied Health Allied health notes reviewed: nursing, RT HEART Score - HEART Score Troponin: Troponin T 1.410 ng/mL (0.00-0.029) H* 03/16/22 17:41 Troponin T 1.420 ng/mL (0.00-0.029) H* 03/16/22 17:41 Results - Labs CBC & Chem 7: 03/18/22 04:47 03/18/22 04:47 Labs: Laboratory Last Values WBC 15.1 K/mm3 (4.5-11.0) H 03/18/22 04:47 RBC 4.35 M/mm3 (3.65-5.03) 03/18/22 04:47 Hgb 13.1 gm/dl (11.8-15.2) 03/18/22 04:47 Hct 39.7 % (35.5-45.6) 03/18/22 04:47 MCV 91 fl (84-94) 03/18/22 04:47 MCH 30 pg (28-32) 03/18/22 04:47 MCHC 33 % (32-34) 03/18/22 04:47 RDW 13.5 % (13.2-15.2) 03/18/22 04:47 Plt Count 253 K/mm3 (140-440) 03/18/22 04:47 Lymph % (Auto) 16.8 % (13.4-35.0) 03/17/22 04:22 [place] % (Auto) 7.9 % (0.0-7.3) H 03/17/22 04:22 Eos % (Auto) 0.1 % (0.0-4.3) 03/17/22 04:22 Baso % (Auto) 0.4 % (0.0-1.8) 03/17/22 04:22 Lymph # (Auto) 2.0 K/mm3 (1.2-5.4) 03/17/22 04:22 [place] # (Auto) 1.0 K/mm3 (0.0-0.8) H 03/17/22 04:22 Eos # (Auto) 0.0 K/mm3 (0.0-0.4) 03/17/22 04:22 Baso # (Auto) 0.0 K/mm3 (0.0-0.1) 03/17/22 04:22 Seg Neutrophils % 74.8 % (40.0-70.0) H 03/17/22 04:22 Seg Neutrophils # 9.1 K/mm3 (1.8-7.7) H 03/17/22 04:22 PT 15.0 Sec. (12.2-14.9) H 03/16/22 05:26 INR 1.06 (0.87-1.13) 03/16/22 05:26 APTT 31.2 Sec. (24.2-36.6) 03/16/22 05:26 Heparin Anti-Xa Level 0.33 U.I./ml (0.3-0.7) 03/18/22 09:46 Sodium 134 mmol/L (137-145) L 03/18/22 04:47 Potassium 4.3 mmol/L (3.6-5.0) 03/18/22 04:47 Chloride 97.2 mmol/L (98-107) L 03/18/22 04:47 Carbon Dioxide 20 mmol/L (22-30) L 03/18/22 04:47 Anion Gap 21 mmol/L 03/18/22 04:47 BUN 43 mg/dL (9-20) H 03/18/22 04:47 Creatinine 1.2 mg/dL (0.8-1.3) 03/18/22 04:47 Estimated GFR > 60 ml/min 03/18/22 04:47 BUN/Creatinine Ratio 36 % 03/18/22 04:47 Glucose 136 mg/dL (75-100) H 03/18/22 04:47 POC Glucose 121 mg/dL (70-105) H 03/18/22 11:32 Lactic Acid 1.60 mmol/L (0.7-2.0) 03/17/22 04:22 Calcium 8.0 mg/dL (8.4-10.2) L 03/18/22 04:47 Phosphorus 3.80 mg/dL (2.5-4.5) 03/18/22 04:47 Magnesium 2.50 mg/dL (1.7-2.3) H 03/18/22 04:47 Total Bilirubin 0.40 mg/dL (0.1-1.2) 03/16/22 03:41 AST 28 units/L (5-40) 03/16/22 03:41 ALT 32 units/L (7-56) 03/16/22 03:41 Alkaline Phosphatase 60 units/L (35-129) 03/16/22 03:41 Total Creatine Kinase 158 units/L (55-170) 03/16/22 Unknown CK-MB (CK-2) 9.0 ng/mL (0.0-4.0) H 03/16/22 Unknown CK-MB (CK-2) Rel Index 5.6 (0-4) H 03/16/22 Unknown Troponin T 1.410 ng/mL (0.00-0.029) H* 03/16/22 17:41 Troponin T 1.420 ng/mL (0.00-0.029) H* 03/16/22 17:41 NT-Pro-B Natriuret Pep 8846 pg/mL (0-900) H 03/16/22 Unknown Total Protein 6.4 g/dL (6.3-8.2) 03/16/22 03:41 Albumin 4.0 g/dL (3.9-5) 03/16/22 03:41 Albumin/Globulin Ratio 1.7 % 03/16/22 03:41 Triglycerides 139 mg/dL (2-149) 03/16/22 03:41 Cholesterol 175 mg/dL (50-199) 03/16/22 03:41 LDL Cholesterol Direct 134 mg/dL (50-130) H 03/16/22 03:41 HDL Cholesterol 25 mg/dL (40-59) L 03/16/22 03:41 Cholesterol/HDL Ratio 7.00 % 03/16/22 03:41 Procalcitonin 0.05 ng/mL (<0.15) 03/17/22 17:17 Urine Color Yellow (Yellow) 03/16/22 13:56 Urine Turbidity Clear (Clear) 03/16/22 13:56 Urine pH 5.0 (5.0-7.0) 03/16/22 13:56 Ur Specific [place] 1.018 (1.003-1.030) 03/16/22 13:56 Urine Protein <15 mg/dl mg/dL (Negative) 03/16/22 13:56 Urine Glucose (UA) Neg mg/dL (Negative) 03/16/22 13:56 Urine Ketones Neg mg/dL (Negative) 03/16/22 13:56 Urine Blood Lg (Negative) 03/16/22 13:56 Urine Nitrite Neg (Negative) 03/16/22 13:56 Urine Bilirubin Neg (Negative) 03/16/22 13:56 Urine Urobilinogen < 2.0 mg/dL (<2.0) 03/16/22 13:56 Ur Leukocyte Esterase Neg (Negative) 03/16/22 13:56 Urine WBC (Auto) 1.0 /HPF (0.0-6.0) 03/16/22 13:56 Urine RBC (Auto) 2.0 /HPF (0.0-6.0) 03/16/22 13:56 U Epithel Cells (Auto) < 1.0 /HPF (0-13.0) 03/16/22 13:56 Hyaline Casts 6 /LPF 03/16/22 13:56 Urine Mucus 1+ /HPF 03/16/22 13:56 Coronavirus (PCR) Negative (Negative) 03/16/22 12:26 Microbiology: Microbiology 03/16/22 13:56 Urine,Clean Catch Urine Culture - Final NO GROWTH AFTER 48 HOURS 03/16/22 03:41 Peripheral/Venous Blood Culture - Preliminary NO GROWTH AFTER 48 HOURS 03/16/22 03:41 Peripheral/Venous Blood Culture - Preliminary NO GROWTH AFTER 48 HOURS Martini/IV: Voiding Method Urinal Active Medications - Current Medications Current Medications: Generic Name Dose Route Start Last Admin Trade Name Freq PRN Reason Stop Dose Admin Acetaminophen 650 mg 03/16/22 06:14 03/17/22 17:05 Acetaminophen 325 Mg Tab PO 650 mg Q6H PRN Administration Pain MILD(1-3)/Fever >100.5/CLEARY Albuterol/Ipratropium 1 ampul 03/17/22 22:30 03/18/22 16:09 Ipratropium/Albuterol Sulfate 3 Ml Ampul.Neb IH 1 ampul QIDRT EUGENIO Administration Amiodarone HCl 200 mg 03/18/22 13:00 03/18/22 12:54 Amiodarone 200 Mg Tab PO 200 mg BID EUGENIO Administration Aspirin 325 mg 03/17/22 10:00 03/18/22 09:00 Aspirin Ec 325 Mg Tab PO 325 mg QDAY EUGENIO Administration Atorvastatin Calcium 20 mg 03/16/22 22:00 03/17/22 21:03 Atorvastatin 20 Mg Tab PO 20 mg QHS EUGENIO Administration Docusate Sodium 100 mg 03/19/22 22:00 Docusate Sodium 100 Mg Cap PO BID [facility] Famotidine 20 mg 03/16/22 10:00 03/18/22 09:00 Famotidine 20 Mg/2 Ml Inj IV 20 mg QDAY EUGENIO Administration Furosemide 40 mg 03/16/22 18:00 03/18/22 06:15 Furosemide 40 Mg/4 Ml Inj IV 40 mg BID@0600,1800 EUGENIO Administration Heparin Sodium (Porcine) 2,900 unit 03/16/22 05:14 Heparin 10,000 Units/10 Ml Vial 40 unit/kg (2900 unit) IV Q6H PRN Anti-Xa Assay<0.1 units/ml Heparin Sodium/Sodium Chloride 25,000 unit in 500 mls @ 20 mls/hr 03/16/22 06:00 03/18/22 12:40 Heparin/ 0.45% Nacl-25,000 Unit/500 Ml IV 1,600 units/hr TITRATE EUGENIO 32 mls/hr Titration Protocol 1,000 UNITS/HR Magnesium Hydroxide 30 ml 03/16/22 06:14 Magnesium Hydroxide (Mom) Oral Liqd Udc PO Q4H PRN Constipation Morphine Sulfate 2 mg 03/16/22 06:14 Morphine 4 Mg/1 Ml Inj IV Q5MIN PRN Chest Pain unrelieved by NTG Ondansetron HCl 4 mg 03/16/22 06:14 Ondansetron 4 Mg/2 Ml Inj IV Q8H PRN Nausea And Vomiting Sodium Chloride 10 ml 03/16/22 10:00 03/18/22 09:01 Sodium Chloride 0.9% 10 Ml Flush Syringe IV 10 ml BID EUGENIO Administration Sodium Chloride 10 ml 03/16/22 06:14 Sodium Chloride 0.9% 10 Ml Flush Syringe IV PRN PRN LINE FLUSH Tramadol HCl 50 mg 03/16/22 06:14 Tramadol 50 Mg Tab PO Q6H PRN Pain, Moderate (4-6) Nutrition/Malnutrition Assess - Dietary Evaluation Nutrition/Malnutrition Findings: Nutrition Notes Start: 03/17/22 12:28 Freq: Status: Active Protocol: Document 03/17/22 12:28 [facility] (Rec: 03/17/22 12:32 [id number] Nutrition Notes Need for Assessment generated from: system technologist Initial or Follow up Assessment Other Pertinent Diagnosis NSTEMI, Pulmonary edema, Hypoxia, Chest pain Current Diet Cardiac (for dinner tonight) Labs/Tests K 5.4 BUN 35 Pertinent Medications Lasix, Heparin gtt, Kionex x 1 dose Height 5 ft 8 in Weight 72.575 kg [place] Body Weight (kg) 70.00 BMI 24.3 Weight Status Appropriate Subjective/Other Information Pt screened for skin risk assessment (Jonn score: 18). Stress test cancelled today as pt unable to tolerate being off BiPap support at this time. Burn Absent Trauma Absent Minimum of two criteria No #1 Nutrition Diagnosis Predicted suboptimal energy intake Etiology respiratory distress As Evidenced by Signs and Symptoms pt unable to tolerate being off BiPap support Is patient on ventilator? No Is Patient Ambulatory and/or Out of Bed No REE-(Bearden-[facility]. Jeor-confined to bed) 7764.149 Calculation Used for Recommendations [facility] Additional Notes Pro needs 1.2-2g/k-145g/ day Fluid needs 1ml/kcal Nutrition Intervention Change Diet Order: Continue current diet order Goal #1 PO intakes to meet at least 75 % energy and pro needs Anticipated Discharge Needs: Heart-healthy diet (i.e., low sodium) Follow-Up By: 03/20/22 Additional Comments F/U: intakes, need for ONS
[2022-03-19 05:16] LABS: Basophils % (Auto) 0.1 % (0.0-1.8); Hematocrit 41.5 % (35.5-45.6); Hemoglobin 13.6 gm/dl (11.8-15.2); Lymphocytes # (Auto) 1.2 K/mm3 (1.2-5.4); Lymphocytes % (Auto) 7.6 % (13.4-35.0); Mean Corpuscular HGB Conc 33 % (32-34); Mean Corpuscular Volume 92 fl (84-94); Monocytes # (Auto) 0.7 K/mm3 (0.0-0.8); Monocytes % (Auto) 4.6 % (0.0-7.3); Platelet Count 270 K/mm3 (140-440); Red Blood Count 4.51 M/mm3 (3.65-5.03); Red Cell Distribution Width 13.4 % (13.2-15.2)
[2022-03-19 05:25] LABS: INR 1.08 (0.87-1.13)
[2022-03-19] MEDS: FUROSEMIDE 40 MG/4 ML INJ IV SCH ×2 (05:34→18:01)
[2022-03-19 05:35] LABS: BUN/Creatinine Ratio 33; Blood Urea Nitrogen 39 mg/dL (9-20); Calcium 8.2 mg/dL (8.4-10.2); Hemolysis Index 6
[2022-03-19] MEDS: IPRATROPIUM/ALBUTEROL SULFATE 3 ML AMPUL.NEB IH SCH (08:27)
[2022-03-19] MEDS ORDERED: HEPARIN/NS 5000 UNIT/500ML 1,000 ML IR ONE (09:25)
[2022-03-19] MEDS ORDERED: VERAPAMIL 5 MG/2 ML INJ ONE (09:25)
[2022-03-19] MEDS ORDERED: HEPARIN 10,000 UNITS/10 ML VIAL ONE (09:25)
[2022-03-19] MEDS ORDERED: NITROGLYCERIN SYRINGE 3 ML ONE (09:25)
[2022-03-19] MEDS ORDERED: LIDOCAINE (2%) 20 MG/1 ML VIAL 50 ML MDV INFILTRATI ONE ×2 (09:25→09:26)
[2022-03-19] MEDS: ASPIRIN EC 325 MG TAB PO SCH (09:29)
[2022-03-19] MEDS ORDERED: SODIUM CHLORIDE 0.9% 500 ML 500 ML IV SCH (10:00)
[2022-03-19] MEDS: FAMOTIDINE 20 MG/2 ML INJ IV SCH (11:02)
[2022-03-19] MEDS: AMIODARONE 200 MG TAB PO SCH (11:02)
[2022-03-19] MEDS ORDERED: HYDROcodone/ACETAMINOPHEN 5-325 MG TAB PO PRN (11:20)
--- NOTE | 2022-03-19 11:52 | Discharge Summary ---
<BILL GUTIERREZMariela - Last Filed: 03/20/22 07:16> Providers - Providers Date of Admission: 03/16/22 06:14 Date of discharge: 03/19/22 Attending physician: BRIDGER FULLER MD 03/16/22 Consult to Cardiac Rehabilitation [CONS] Routine Reason For Exam: Phase I 03/16/22 05:55 Consult to Physician [CONS] Urgent Comment: Consulting Provider: DAVID QUINONES Physician Instructions: Reason For Exam: NSTEMI 03/16/22 07:13 Consult to Physician [CONS] Routine Comment: Consulting Provider: CROW PEDRAZA Physician Instructions: Reason For Exam: Chest pain, NSTEMI, pulmonary edema on BiPAP Primary care physician: JAMEY LONDON Hospitalization Condition: Serious Hospital course: This is a 51-year-old male with no known medical history except nicotine abuse (1 pack/day for over 30 years) who presented to the emergency department on 03/16 with complaints of shortness of breath over the past 1 1/2 week, constant substernal chest pain, occasional nonproductive cough, nausea and vomiting and dizziness. Upon arrival to the emergency department patient was tachypneic and tachycardic and SPO2 was 91% on room air and was placed on BiPAP with significant improvement. Work-up in the emergency department included a CXR which showed pulmonary edema, elevated proBNP of 8846, elevated troponin of 1.46, and leukocytosis. Patient was placed on heparin drip and admitted with NSTEMI with pulmonary edema. Cardiology and CCM were consulted in the emergency department. On 03/17 patient remained on continuous Bipap however RR in the 20s, remained on IV lasix BID and 2D Echo pending with plan for possible stress test however this was delayed. On 03/18 overnight patient was noted to be in atrial fibrillation and started on amiodarone drip which has been transitioned to p.o., uses BiPAP overnight however is transitioned to nasal cannula during the day. On 03/19 patient underwent a left fowler cath which showed multi-vessel disease and patient is being transferred to [place] to Dr. Stokes service for further intervention. Patient will need to follow up with primary care physician or establish one if needed within 1-2 weeks of discharge and will need to follow up with a needle maker post discharge. A/P Cardiac: NSTEMI, new onset CHF, A. fib with RVR, suspected ischemic cardiomyopathy -Cardiology consulted, appreciate recommendations -Blood pressure monitoring per protocol -Echocardiogram shows LVEF of 10 to 15%, severe global hypokinesis of left ventricle, right ventricle is borderline dilated, moderate pulmonary hypertension -S/p amiodarone drip transitioned to p.o. amiodarone -Lasix twice daily -Hold CLARITA/ARB's and beta-blockers -Aspirin, Lipitor -as needed nitro, morphine -Heparin drip -03/19 LHC showed multi vessel disease and he will transferred to [place] with accepting physician Dr. Stokes Respiratory: Acute hypoxic respiratory failure secondary to pulmonary edema, tobacco dependence -ICU transfer for increased work of breathing and tachypnea requiring continuous BiPAP -CCM consulted, appreciate recommendations -BiPAP nightly -Weaned to nasal cannula during day -Pulmonary hygiene -SPO2 monitoring -Smoking cessation counseling provided -Patient is eager to stop smoking : Hyperkalemia -K 5.1 today -Diuresis with Lasix -Strict intake and output -Renally dose medications -Avoid nephrotoxic medications -Daily weights -Trend BMP Heme: Leukocytosis -Trend CBC -Transfuse hemoglobin less than 7 -Anticoagulation with heparin drip -Monitor for signs of bleeding -SCDs to BLE while in bed Disposition: 30 STILL A PATIENT Final Discharge Diagnosis (Prints w/discharge instructions): NSTEMI, Multi vessel disease Time spent for discharge: 60 Core Measure Documentation - Palliative Care Palliative Care/ Comfort Measures: Not Applicable - Core Measures Any of the following diagnoses?: acute MO - Acute MO Discharge Requirements Aspirin at discharge: Yes CLARITA/ARB for LVSD if EF <40%: Yes Reason for no CLARITA/ARB: Hyperkalemia Beta wilver at discharge: No Reason for no beta wilver on DC: Hypotension Statin for LDL = or >100 mg/dl on DC: Yes Exam - Constitutional Vitals: Temp Pulse Resp BP Pulse Ox 98.1 F 106 H 32 H 87/70 93 03/19/22 11:23 03/19/22 11:10 03/19/22 11:10 03/19/22 11:01 03/19/22 11:10 General appearance: Present: no acute distress - EENT Eyes: Present: PERRL, EOM intact ENT: hearing intact, clear oral mucosa, dentition normal - Neck Neck: Present: supple, normal ROM - Respiratory Respiratory effort: normal Respiratory: bilateral: CTA - Cardiovascular Rhythm: regular Heart Sounds: Present: S1 & S2. Absent: systolic murmur, diastolic murmur - Extremities Extremities: no ischemia, pulses intact, pulses symmetrical, No edema, normal temperature, normal color, Full ROM Peripheral Pulses: within normal limits - Abdominal General gastrointestinal: Present: soft, non-tender, normal bowel sounds - Integumentary Integumentary: Present: clear, warm, dry - Musculoskeletal Musculoskeletal: strength equal bilaterally - Psychiatric Psychiatric: appropriate mood/affect - Neurologic Neurologic: CNII-XII intact, moves all extremities - Allied Health Allied health notes reviewed: nursing Plan Activity: advance as tolerated Diet: low fat, low cholesterol Special Instructions: record daily weights, record daily BP diary Follow up with: JAMEY LONDON MD [Primary Care Provider] - 7 Days JANICE DAVIDSON MD [Staff Physician] - 7 Days <BRIDGER FULLER - Last Filed: 03/20/22 14:30> Providers - Providers Date of Admission: 03/16/22 06:14 Attending physician: BRIDGER FULLER MD 03/16/22 Consult to Cardiac Rehabilitation [CONS] Routine Reason For Exam: Phase I 03/16/22 05:55 Consult to Physician [CONS] Urgent Comment: Consulting Provider: DAVID QUINONES Physician Instructions: Reason For Exam: NSTEMI 03/16/22 07:13 Consult to Physician [CONS] Routine Comment: Consulting Provider: CROW PEDRAZA Physician Instructions: Reason For Exam: Chest pain, NSTEMI, pulmonary edema on BiPAP Primary care physician: JAEMY LONDON Hospitalization Hospital course: I saw and evaluated the patient. Discussed with the nurse practitioner and agree with their findings and plan as documented in this note. Exam - Constitutional Vitals: Temp Pulse Resp BP Pulse Ox 97.7 F 109 H 21 97/71 91 03/19/22 16:00 03/19/22 18:00 03/19/22 18:00 03/19/22 18:00 03/19/22 18:00
--- NOTE | 2022-03-19 12:10 | Progress Note ---
Assessment and Plan Patient 50-year-old male who presents to the ED for complaint of shortness of breath for 2 weeks NSTEMI HFrEF A. fib with RVR Suspect ischemic cardiomyopathy Echo 03/16/2022-EF 10 to 15%. LV is moderately dilated. Severe global hypokinesis with LV. Right ventricle is borderline dilated. Left atrium mildly dilated. Moderate pulmonary hypertension Cardiac cath 03/19/2022 -severe diffuse epicardial coronary artery disease with 100% chronic total occlusion of right coronary, 100% chronic total occlusion of the ostial left LAD and 90% ostial left circumflex stenosis. The LV dysfunction estimated EF 10 to 15%. Elevated LVEDP Plan: Patient remains chest pain-free Patient for cardiac cath this a.m. found to have severe coronary artery disease. Patient to be transferred to [place] for further intervention. Accepting physician is Dr. Stokes Continue amiodarone 200 mg p.o. twice daily Patient currently on aspirin, Lipitor, Lasix, heparin drip Continue IV diuretics repeat BMP in the a.m. Strict I&O's Will hold CLARITA or ARB's and beta-wilver due to soft blood pressures Continue to closely monitor Plan of care discussed with patient who verbalized understanding and acknowledgment Patient seen in conjunction with Dr. Linder who agrees with this plan of care - Patient Problems (1) Hypoxia Current Visit: Yes Status: Acute (2) NSTEMI (non-ST elevated myocardial infarction) Current Visit: Yes Status: Acute (3) New onset of congestive heart failure Current Visit: Yes Status: Acute (4) Pulmonary edema Current Visit: Yes Status: Acute (5) Tobacco abuse Current Visit: Yes Status: Acute Subjective Date of service: 03/19/22 Principal diagnosis: AHRF; AE-CHF; Acute pulmonary edema; Leukocytosis; Lactic acidosis Interval history: Patient for cardiac cath Currently patient is sinus 90s to low 100s on monitor Objective Vital Signs Temp Pulse Pulse Pulse Pulse Resp Resp 03/19/22 12:01 104 H 34 H 03/19/22 12:00 101 H 101 H 35 H 03/19/22 11:23 98.1 F 03/19/22 11:10 106 H 32 H 03/19/22 11:01 108 H 47 H 03/19/22 10:32 111 H 16 03/19/22 09:37 03/19/22 08:40 103 H 97 H 20 03/19/22 08:28 03/19/22 08:00 97.5 F L 95 H 97 H 30 H 03/19/22 07:00 101 H 33 H 03/19/22 06:00 101 H 31 H 03/19/22 05:02 98 H 31 H 03/19/22 05:00 96 H 28 H 03/19/22 04:00 98.1 F 111 H 101 H 41 H 03/19/22 03:00 98 H 34 H 03/19/22 02:00 102 H 25 H 03/19/22 01:00 100 H 43 H 03/19/22 00:00 97.9 F 107 H 95 H 40 H 03/18/22 23:21 100 H 03/18/22 23:16 100 H 37 H 03/18/22 23:00 99 H 33 H 03/18/22 22:00 104 H 36 H 03/18/22 21:47 108 H 32 H 03/18/22 21:00 110 H 25 H 03/18/22 20:00 98.2 F 112 H 112 H 47 H 03/18/22 19:53 111 H 27 H 03/18/22 19:44 109 H 03/18/22 19:30 109 H 49 H 03/18/22 19:00 112 H 30 H 03/18/22 18:30 114 H 43 H 03/18/22 18:17 32 H 03/18/22 18:00 126 H 52 H 03/18/22 17:30 112 H 43 H 03/18/22 17:00 114 H 40 H 03/18/22 16:30 120 H 34 H 03/18/22 16:10 106 H 108 H 18 03/18/22 16:00 98 F 119 H 121 H 33 H 03/18/22 15:30 98 H 25 H 03/18/22 15:00 106 H 38 H 03/18/22 14:30 101 H 34 H 03/18/22 14:00 101 H 34 H 03/18/22 13:30 103 H 35 H 03/18/22 13:00 103 H 39 H 03/18/22 12:35 98 H 98 H 18 03/18/22 12:30 100 H 44 H Resp BP Pulse Ox 03/19/22 12:01 93/71 90 03/19/22 12:00 93 03/19/22 11:23 03/19/22 11:10 93 03/19/22 11:01 87/70 90 03/19/22 10:32 189/132 03/19/22 09:37 93 03/19/22 08:40 20 03/19/22 08:28 92 03/19/22 08:00 99/63 89 03/19/22 07:00 98/76 96 03/19/22 06:00 103/79 95 03/19/22 05:02 101/80 97 03/19/22 05:00 100/70 97 03/19/22 04:00 102/79 95 03/19/22 03:00 98/75 94 03/19/22 02:00 105/76 96 03/19/22 01:00 101/80 97 03/19/22 00:00 115/86 95 03/18/22 23:21 03/18/22 23:16 101/75 98 03/18/22 23:00 101/75 97 03/18/22 22:00 104/77 97 03/18/22 21:47 102/54 96 03/18/22 21:00 97/48 88 03/18/22 20:00 96/73 90 03/18/22 19:53 93 03/18/22 19:44 03/18/22 19:30 99/75 89 03/18/22 19:00 104/75 89 03/18/22 18:30 113/82 90 03/18/22 18:17 03/18/22 18:00 105/73 03/18/22 17:30 105/73 92 03/18/22 17:00 105/74 92 03/18/22 16:30 98/75 92 03/18/22 16:10 18 03/18/22 16:00 107/79 94 03/18/22 15:30 100/74 91 03/18/22 15:00 103/78 90 03/18/22 14:30 104/76 94 03/18/22 14:00 105/78 93 03/18/22 13:30 111/75 92 03/18/22 13:00 105/73 92 03/18/22 12:35 18 03/18/22 12:30 97/77 91 - Physical Examination General: No Apparent Distress HEENT: Positive: PERRL Neck: Positive: trachea midline Cardiac: Positive: Reg Rate and Rhythm Lungs: Positive: Decreased Breath Sounds Neuro: Positive: Grossly Intact Abdomen: Positive: Soft, Active Bowel Sounds Skin: Negative: Rash, Suspicious Lesions, Ulceration Extremities: Present: upper extr. pulses. Absent: edema - Labs and Meds Coagulation 03/19/22 Range/Units 04:28 PT 15.2 H (12.2-14.9) Sec. INR 1.08 (0.87-1.13) CBC 03/19/22 Range/Units 04:28 WBC 15.6 H (4.5-11.0) K/mm3 RBC 4.51 (3.65-5.03) M/mm3 Hgb 13.6 (11.8-15.2) gm/dl Hct 41.5 (35.5-45.6) % Plt Count 270 (140-440) K/mm3 Lymph # (Auto) 1.2 (1.2-5.4) K/mm3 Hinds # (Auto) 0.7 (0.0-0.8) K/mm3 Eos # (Auto) 0.0 (0.0-0.4) K/mm3 Baso # (Auto) 0.0 (0.0-0.1) K/mm3 Comprehensive Metabolic Panel 03/19/22 Range/Units 04:28 Sodium 135 L (137-145) mmol/L Potassium 5.1 H (3.6-5.0) mmol/L Chloride 96.1 L (98-107) mmol/L Carbon Dioxide 24 (22-30) mmol/L BUN 39 H (9-20) mg/dL Creatinine 1.2 (0.8-1.3) mg/dL Glucose 135 H (75-100) mg/dL Calcium 8.2 L (8.4-10.2) mg/dL - Imaging and Cardiology Echo: report reviewed Cardiac cath: report reviewed - Telemetry EKG Rhythm: Sinus Rhythm - EKG Sinus rhythms and dysrhythmias: sinus rhythm - Allied health notes Allied health notes reviewed: nursing
--- NOTE | 2022-03-19 12:28 | Cardiac Catherization Report ---
DATE OF PROCEDURE: 03/19/2022 CARDIAC CATHETERIZATION REFERRING PHYSICIAN: Hospitalist Service. INDICATIONS FOR PROCEDURE: The patient is a pleasant 51-year-old gentleman, who presented over the weekend after having chest pain 2 weeks ago, abnormal troponin, echocardiogram with ejection fraction of 10-15%, also had AFib yesterday, back in sinus rhythm now. He basically has had shortness of breath and for weeks orthopnea. We diuresed him as best we could. He also has a longstanding tobacco use and he has COPD. We confirmed he is able to lay flat prior to proceeding today. Relatively ill patient with severe decompensated heart failure as well as COPD, new to the medical system. Risks, benefits and alternatives discussed prior to obtaining informed consent. 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 Lan's test in right hand is normal. A 2 mL of 2% lidocaine used to anesthetize the right wrist. I did not use sedation for this procedure given his overall tenuous status. A JL3.5 catheter was used to engage the left main. No dampening or ventricularization. Cineangiography performed in all projections. JR4 catheter used to cross the aortic valve under fluoroscopic guidance. Left ventriculography performed in 30-degree GUNDERSON and 30-degree BRUNEIAN via hand injections, catheter flushed. Manual pullback performed with continuous pressure monitoring. Catheter used to engage the right coronary. No dampening or ventricularization. Cineangiography performed in all projections. Next, catheter removed from the body of wire, sheath removed. Manual pressure used to achieve hemostasis. The patient tolerated the procedure well, was on a wedge, no issues. Again, no sedation was given intentionally. DATA: The patient remained in sinus tachycardia throughout the procedure, heart rate of 110-120. Aortic pressure is 100/70, LV pressure is 100, LVEDP of 35 mmHg. Left ventriculography reveals severe global left ventricular hypokinesis, estimated ejection fraction of 10-15%, elevated LVEDP as aforementioned. This is a right dominant system. Right coronary with a chronic total occlusion in the proximal segment. Right to right collaterals and right to left collaterals are identified. The distal right coronary feeds the entirety of the LAD. Left main without significant disease. Left circumflex is a moderate-sized vessel, 90% ostial stenosis, MARQUISE 3 flow. LAD with a chronic total occlusion proximally, again with extensive left to right collaterals and right to left collaterals. CONCLUSIONS: 1. Severe and diffuse epicardial coronary artery disease with a 100% chronic total occlusion of the right coronary, 100% chronic total occlusion of the ostial left LAD and 90% ostial left circumflex stenosis. 2. Severe LV dysfunction, estimated ejection fraction of 10-15%. 3. Elevated LVEDP. 4. No evidence of aortic stenosis. 5. Physiologic sinus tachycardia. These findings are consistent with severe ischemic cardiomyopathy with physiologic sinus tachycardia. Continue current medications. Continue diuresis. Continue IV heparin. Given our findings, we will transfer the patient to [facility] for further tertiary care including consideration of coronary artery bypass surgery. Discussed with Dr. Mars Stokes. The patient is clinically stable, awake, alert, asymptomatic. We will initiate transfer. Findings including cardiomyopathy, atrial fibrillation, severe diffuse coronary artery disease discussed with the patient at length. Will also be set up with [facility]. TID: [id number] RECEIPT: [id number] DAVONTE/TERENCE/JOHN
[2022-03-19] MEDS: HEPARIN/ 0.45% NACL DRIP 25,000 UNIT/500 ML BAG IV SCH (13:34)
--- NOTE | 2022-03-19 13:53 | Progress Note ---
Assessment and Plan Acute hypoxemic respiratory failure Acute bilateral pulmonary edema Acute exacerbation of congestive heart failure Leukocytosis Tobacco use disorder Lactic acidosis - to transfer to [place] for CTSU evaluation re: multivessel & diffuse CAD - continue care as below otherwise; - NIV qhs with prn daytime use - continue to wean supplemental oxygen to keep O2 sats > 90% - continue Bronchodilators (JENNYFER & LABA) with pulm hygiene per RT - continue systemic steroids with slow taper - continue inhaled corticosteroids - continue to avoid nephrotoxins, renally dose all medications - continue mobility protocols to prevent pressure ulcers - PT/OT as tolerated - Wound care per RN/WCT - continue accuchecks with glycemic control per SSI for target blood glucose < 180 mg/dL - Smoking cessation strongly counseled at the bedside - home oxygen evaluation at discharge - GI & VTE prophylaxis - Flu & pneumovax per protocol - Pulmonary out patient follow up for PFTs and optimization of respiratory status - continue other care per attending / other consultants - prn analgesia per pain score ... re-evaluate in am & prn Subjective Date of service: 03/19/22 Principal diagnosis: AHRF; AE-CHF; Acute pulmonary edema; Leukocytosis; Lactic acidosis Interval history: Patient is seen today for: Acute hypoxemic respiratory failure; AE-CHF; Acute pulmonary edema; Leukocytosis; Lactic acidosis Seen and examined at bedside; 24hour events reviewed; nursing and respiratory care staff consulted; no adverse overnight events reported to me; resting peacefully in bed; s/p LHCath which revealed severe diffuse epicardial coronary artery disease with 100% chronic total occlusion of right coronary, 100% chronic total occlusion of the ostial left LAD and 90% ostial left circumflex stenosis & EF 10 to 15% Objective Vital Signs - 12hr 03/19/22 03/19/22 03/19/22 02:00 03:00 04:00 Temperature 98.1 F Pulse Rate 102 H 98 H 111 H Pulse Rate [ Bilateral Throughout] Pulse Rate [ 101 H From Monitor] Pulse Rate [ Posterior Bilateral Throughout] Respiratory 25 H 34 H 41 H Rate Respiratory Rate [Bilateral Throughout] Respiratory Rate [Posterior Bilateral Throughout] Blood Pressure 105/76 98/75 102/79 O2 Sat by Pulse 96 94 95 Oximetry 03/19/22 03/19/22 03/19/22 05:00 05:02 06:00 Temperature Pulse Rate 96 H 98 H 101 H Pulse Rate [ Bilateral Throughout] Pulse Rate [ From Monitor] Pulse Rate [ Posterior Bilateral Throughout] Respiratory 28 H 31 H 31 H Rate Respiratory Rate [Bilateral Throughout] Respiratory Rate [Posterior Bilateral Throughout] Blood Pressure 100/70 101/80 103/79 O2 Sat by Pulse 97 97 95 Oximetry 03/19/22 03/19/22 03/19/22 07:00 08:00 08:28 Temperature 97.5 F L Pulse Rate 101 H 95 H Pulse Rate [ Bilateral Throughout] Pulse Rate [ 97 H From Monitor] Pulse Rate [ Posterior Bilateral Throughout] Respiratory 33 H 30 H Rate Respiratory Rate [Bilateral Throughout] Respiratory Rate [Posterior Bilateral Throughout] Blood Pressure 98/76 99/63 O2 Sat by Pulse 96 89 92 Oximetry 03/19/22 03/19/22 03/19/22 08:40 09:37 10:32 Temperature Pulse Rate 111 H Pulse Rate [ 103 H Bilateral Throughout] Pulse Rate [ From Monitor] Pulse Rate [ 97 H Posterior Bilateral Throughout] Respiratory 16 Rate Respiratory 20 Rate [Bilateral Throughout] Respiratory 20 Rate [Posterior Bilateral Throughout] Blood Pressure 189/132 O2 Sat by Pulse 93 Oximetry 03/19/22 03/19/22 03/19/22 11:01 11:10 11:23 Temperature 98.1 F Pulse Rate 108 H Pulse Rate [ Bilateral Throughout] Pulse Rate [ 106 H From Monitor] Pulse Rate [ Posterior Bilateral Throughout] Respiratory 47 H 32 H Rate Respiratory Rate [Bilateral Throughout] Respiratory Rate [Posterior Bilateral Throughout] Blood Pressure 87/70 O2 Sat by Pulse 90 93 Oximetry 03/19/22 03/19/22 03/19/22 12:00 12:01 13:01 Temperature Pulse Rate 101 H 104 H 101 H Pulse Rate [ Bilateral Throughout] Pulse Rate [ 101 H From Monitor] Pulse Rate [ Posterior Bilateral Throughout] Respiratory 35 H 34 H 40 H Rate Respiratory Rate [Bilateral Throughout] Respiratory Rate [Posterior Bilateral Throughout] Blood Pressure 93/71 93/71 O2 Sat by Pulse 93 90 91 Oximetry Constitutional: no acute distress, other (middle aged male with mildly increased respiratory effort at rest) Eyes: non-icteric ENT: oropharynx moist Neck: supple, no lymphadenopathy, no JVD Effort: mildly labored Ascultation: Bilateral: rales (bases) Percussion: Bilateral: not dull Cardiovascular: regular rate and rhythm Gastrointestinal: normoactive bowel sounds, soft, non-tender, non-distended Integumentary: normal Extremities: no cyanosis, pink and warm, pulses normal, no ischemia or petechiae Neurologic: non-focal exam, pupils equal and round, CN II-XII normal, motor strength normal and Psychiatric: mood appropriate, anxious CBC and BMP: 03/19/22 04:28 03/19/22 04:28 ABG, PT/INR, D-dimer: PT/INR, D-dimer PT 15.2 Sec. (12.2-14.9) H 03/19/22 04:28 INR 1.08 (0.87-1.13) 03/19/22 04:28 Abnormal lab findings: Abnormal Labs 03/16/22 03/16/22 03/16/22 03:41 03:41 03:41 WBC 16.3 H Lymph % (Auto) 8.4 L [place] % (Auto) Lymph # (Auto) [place] # (Auto) 1.0 H Seg Neutrophils % 85.4 H Seg Neutrophils # 13.9 H PT Heparin Anti-Xa Level Sodium Potassium Chloride Carbon Dioxide 19 L BUN 25 H Glucose 137 H POC Glucose Lactic Acid Calcium Magnesium CK-MB (CK-2) CK-MB (CK-2) Rel Index Troponin T 1.460 H* NT-Pro-B Natriuret Pep LDL Cholesterol Direct 134 H HDL Cholesterol 25 L 03/16/22 03/16/22 03/16/22 03:41 05:26 06:14 WBC 16.6 H Lymph % (Auto) 6.1 L [place] % (Auto) Lymph # (Auto) 1.0 L [place] # (Auto) 0.9 H Seg Neutrophils % 88.3 H Seg Neutrophils # 14.7 H PT 15.0 H Heparin Anti-Xa Level Sodium Potassium Chloride Carbon Dioxide BUN Glucose POC Glucose Lactic Acid 2.30 H* Calcium Magnesium CK-MB (CK-2) CK-MB (CK-2) Rel Index Troponin T NT-Pro-B Natriuret Pep LDL Cholesterol Direct HDL Cholesterol 03/16/22 03/16/22 03/16/22 06:19 08:19 08:19 WBC Lymph % (Auto) [place] % (Auto) Lymph # (Auto) [place] # (Auto) Seg Neutrophils % Seg Neutrophils # PT Heparin Anti-Xa Level Sodium Potassium Chloride Carbon Dioxide 18 L BUN 24 H Glucose 138 H POC Glucose Lactic Acid 2.60 H* 2.30 H* Calcium 8.2 L Magnesium CK-MB (CK-2) CK-MB (CK-2) Rel Index Troponin T NT-Pro-B Natriuret Pep LDL Cholesterol Direct HDL Cholesterol 03/16/22 03/16/22 03/16/22 17:41 17:41 17:41 WBC Lymph % (Auto) [place] % (Auto) Lymph # (Auto) [place] # (Auto) Seg Neutrophils % Seg Neutrophils # PT Heparin Anti-Xa Level < 0.10 L Sodium Potassium Chloride Carbon Dioxide BUN Glucose POC Glucose Lactic Acid Calcium Magnesium CK-MB (CK-2) CK-MB (CK-2) Rel Index Troponin T 1.420 H* 1.410 H* NT-Pro-B Natriuret Pep LDL Cholesterol Direct HDL Cholesterol 03/16/22 03/16/22 03/17/22 23:58 Unknown 00:39 WBC Lymph % (Auto) [place] % (Auto) Lymph # (Auto) [place] # (Auto) Seg Neutrophils % Seg Neutrophils # PT Heparin Anti-Xa Level < 0.10 L Sodium Potassium Chloride Carbon Dioxide BUN Glucose POC Glucose 109 H Lactic Acid Calcium Magnesium CK-MB (CK-2) 9.0 H CK-MB (CK-2) Rel Index 5.6 H Troponin T NT-Pro-B Natriuret Pep 8846 H LDL Cholesterol Direct HDL Cholesterol 03/17/22 03/17/22 03/17/22 04:22 04:22 08:37 WBC 12.2 H Lymph % (Auto) [place] % (Auto) 7.9 H Lymph # (Auto) [place] # (Auto) 1.0 H Seg Neutrophils % 74.8 H Seg Neutrophils # 9.1 H PT Heparin Anti-Xa Level 0.15 L Sodium Potassium 5.4 H Chloride Carbon Dioxide BUN 35 H Glucose 106 H POC Glucose Lactic Acid Calcium Magnesium CK-MB (CK-2) CK-MB (CK-2) Rel Index Troponin T NT-Pro-B Natriuret Pep LDL Cholesterol Direct HDL Cholesterol 03/17/22 03/17/22 03/17/22 15:12 17:17 17:17 WBC Lymph % (Auto) [place] % (Auto) Lymph # (Auto) [place] # (Auto) Seg Neutrophils % Seg Neutrophils # PT Heparin Anti-Xa Level 0.10 L Sodium Potassium Chloride Carbon Dioxide 21 L BUN 40 H Glucose 106 H POC Glucose 134 H Lactic Acid Calcium 8.0 L Magnesium CK-MB (CK-2) CK-MB (CK-2) Rel Index Troponin T NT-Pro-B Natriuret Pep LDL Cholesterol Direct HDL Cholesterol 03/17/22 03/18/22 03/18/22 23:26 00:55 04:47 WBC 15.1 H Lymph % (Auto) Huntington % (Auto) Lymph # (Auto) [place] # (Auto) Seg Neutrophils % Seg Neutrophils # PT Heparin Anti-Xa Level 0.17 L Sodium Potassium Chloride Carbon Dioxide BUN Glucose POC Glucose 126 H Lactic Acid Calcium Magnesium CK-MB (CK-2) CK-MB (CK-2) Rel Index Troponin T NT-Pro-B Natriuret Pep LDL Cholesterol Direct HDL Cholesterol 03/18/22 03/18/22 03/19/22 04:47 11:32 04:28 WBC 15.6 H Lymph % (Auto) 7.6 L [place] % (Auto) Lymph # (Auto) [place] # (Auto) Seg Neutrophils % 87.7 H Seg Neutrophils # 13.6 H PT Heparin Anti-Xa Level Sodium 134 L Potassium Chloride 97.2 L Carbon Dioxide 20 L BUN 43 H Glucose 136 H POC Glucose 121 H Lactic Acid Calcium 8.0 L Magnesium 2.50 H CK-MB (CK-2) CK-MB (CK-2) Rel Index Troponin T NT-Pro-B Natriuret Pep LDL Cholesterol Direct HDL Cholesterol 03/19/22 03/19/22 03/19/22 04:28 04:28 08:31 WBC Lymph % (Auto) Huntington % (Auto) Lymph # (Auto) [place] # (Auto) Seg Neutrophils % Seg Neutrophils # PT 15.2 H Heparin Anti-Xa Level 0.11 L Sodium 135 L Potassium 5.1 H Chloride 96.1 L Carbon Dioxide BUN 39 H Glucose 135 H POC Glucose Lactic Acid Calcium 8.2 L Magnesium CK-MB (CK-2) CK-MB (CK-2) Rel Index Troponin T NT-Pro-B Natriuret Pep LDL Cholesterol Direct HDL Cholesterol 03/19/22 08:33 WBC Lymph % (Auto) Huntington % (Auto) Lymph # (Auto) [place] # (Auto) Seg Neutrophils % Seg Neutrophils # PT Heparin Anti-Xa Level Sodium Potassium Chloride Carbon Dioxide BUN Glucose POC Glucose 132 H Lactic Acid Calcium Magnesium CK-MB (CK-2) CK-MB (CK-2) Rel Index Troponin T NT-Pro-B Natriuret Pep LDL Cholesterol Direct HDL Cholesterol Allied health notes reviewed: nursing
[2022-03-19] MEDS ORDERED: IPRATROPIUM/ALBUTEROL SULFATE 3 ML AMPUL.NEB IH SCH (14:00)
[2022-03-19 18:03] VITALS: BP 97/71
[2022-03-19] MEDS ORDERED: DOCUSATE SODIUM 100 MG CAP PO SCH (22:00)
--- NOTE | 2022-03-20 10:48 | Electrocardiograph Report ---
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1970 Requested By: LATONYA KINGSLEY Order Number: [id number] Reading MD: Robert Linder Measurements Intervals [place] Rate: 101 P: 60 WI: 139 QRS: 66 QRSD: 101 T: 172 QT: 399 QTc: 519 Interpretive Statements Sinus tachycardia Left atrial enlargement Inferior infarct, old Probable anterolateral infarct, age indeterm Prolonged QT interval Compared to ECG 03/17/2022 19:33:02 Atrial abnormality now present Prolonged QT interval now present Atrial fibrillation no longer present Ventricular premature complex(es) no longer present Myocardial infarct finding still present Electronically Signed On 03-20-2022 10:47:48 EDT by Robert Linder
== END 2022-03-19 18:30 | disposition short-term general hospital (02) | DRG 280 ==
LOC: ED 00:49 → CC1 06:14
PROVIDERS: ADMIT Internal Medicine Geriatric Medicine; ATTEND Internal Medicine
PROC: 5A09457 Assistance with Respiratory Ventilation, 24-96 Consecutive Hours, Continuous Positive Airway Pressure (ICD-10-PCS; 2022-03-16)
PROC: 5A09357 Assistance with Respiratory Ventilation, Less than 24 Consecutive Hours, Continuous Positive Airway Pressure (ICD-10-PCS; 2022-03-18)
PROC: 4A023N7 Measurement of Cardiac Sampling and Pressure, Left Heart, Percutaneous Approach (ICD-10-PCS; principal; 2022-03-19)
PROC: B2111ZZ Fluoroscopy of Multiple Coronary Arteries using Low Osmolar Contrast (ICD-10-PCS; 2022-03-19)
PROC: B2151ZZ Fluoroscopy of Left Heart using Low Osmolar Contrast (ICD-10-PCS; 2022-03-19)
DX: I21.4 Non-ST elevation (NSTEMI) myocardial infarction (principal); J96.01 Acute respiratory failure with hypoxia; I50.23 Acute on chronic systolic (congestive) heart failure; J81.1 Chronic pulmonary edema; I48.21 Permanent atrial fibrillation; E87.2 Acidosis; F17.210 Nicotine dependence, cigarettes, uncomplicated; D72.829 Elevated white blood cell count, unspecified; E87.5 Hyperkalemia; Z79.01 Long term (current) use of anticoagulants
CPT/HCPCS: 36415; 71045; 80048; 80053; 80061; 81001; 82140; 82550; 82553; 82962; 83735; 83880; 84100; 84145; 84484; 85025; 85027; 85520; 85610; 85730; 86850; 86900; 86901; 87040; 87086; 93005; 93306; 93458; 94640; 94644; 94660; 94760; 96374; 96375; 99285; G0378; J1815; J3490; J7060; C1894; C8929; J0282; J0456; J0696; J1644; J1940; J7030; J7040; Q9967; U0003